=== PATIENT | male | born 1955 | race Caucasian/White ===

== ENCOUNTER 2017-03-16 09:22 | Emergency (ER) | payer OTHER ==
[2017-03-16 09:30] VITALS: BP 147/90
--- NOTE | 2017-03-16 09:48 | EDM.PDOC ---
ED HPI GENERAL MEDICAL PROBLEM - General Chief Complaint: Flank Pain Stated Complaint: BACK AND SIDE PAINS, [id number] Time Seen by Provider: 03/16/17 09:48 Source of Information: Reports: Patient History Limitations: Reports: No Limitations - History of Present Illness INITIAL COMMENTS - FREE TEXT/NARRATIVE: Patient comes in with complaint of pain in left side. He was brushing teeth, began to cough and felt pull in this area. States he has prob with chronic back pain and sees chiropracter. Has not had definitive eval of back by provider. He has been having left flank pain off and on for sometime. He had a ct abd/pelvis 03/06/17 which was unremarkable. He had EGD back in 2014 which was unremarkable. He is scheduled for colonoscopy on March 18 for pain. He reports he has had blood in his stool also (which his provider is aware of). He states he has been very depressed because he thinks for sure he must have colon cancer. He states he cannot eat, cannot sleep. He has thought about possible ways to kill himself if he is diagnosed with colon cancer and wants to know if mental health can come see him in ER. He states he has lost about 4 pounds in the last week because he cannot eat. Left Flank Pain Score (Numeric/FACES): 9 - Related Data Allergies Allergy/AdvReac Type Severity Reaction Status Date / Time No Known Allergies Allergy Verified 03/16/17 09:26 Home Meds: Home Meds Fosinopril/Hydrochlorothiazide [Monopril HCTZ 20-12.5 MG] 1 tab PO DAILY [History] Aspirin [Halfprin] 81 mg PO DAILY 05/15/15 [History] Pantoprazole [ProTONIX] 40 mg PO DAILY 05/15/15 [History] atorvaSTATin [Lipitor] 20 mg PO DAILY 05/15/15 [History] Past Medical History HEENT History: Reports: Other (See Below) Other HEENT History: CONJUNCTIVITIS, ringing in L) ear occasionally Cardiovascular History: Reports: High Cholesterol, Hypertension Other Cardiovascular History: TREADMILL STRESS TEST 2011 Gastrointestinal History: Reports: GERD, Other (See Below) Other Gastrointestinal History: colonoscopy scheduled for friday Musculoskeletal History: Reports: Back Pain, Chronic, Fracture Other Musculoskeletal History: FINGER FRACTURE(CRUSH) Neurological History: Reports: Vertigo - Past Surgical History HEENT Surgical History: Reports: Adenoidectomy Social & Family History - Family History Family Medical History: Noncontributory - Tobacco Use Smoking Status *Q: Never Smoker - Caffeine Use Caffeine Use: Reports: Coffee - Recreational Drug Use Recreational Drug Use: No ED ROS GENERAL - Review of Systems Review Of Systems: See Below Constitutional: Reports: No Symptoms HEENT: Reports: No Symptoms Respiratory: Reports: No Symptoms Cardiovascular: Reports: No Symptoms Endocrine: Reports: No Symptoms GI/Abdominal: Reports: Other (chronic left flank pain for several years. blood in stool for "awhile") : Reports: No Symptoms Musculoskeletal: Reports: Other (pt notes h/o of chronic low back pain and when has flare sees chiropractor. he was brushing his teeth today and accidently gagged causing him to cough and gag. he felt like he had a pull in his left side and low back pain. no pain down buttock or thigh, no bowel or bladder compromise) Skin: Reports: No Symptoms Neurological: Reports: No Symptoms Psychiatric: Reports: Other (pt states he has been very depressed. cannot eat or sleep. lost 4 pounds in last week. convinced he has colon cancer and states he has had suicidal thoughts about killing himself if diagnosed with colon cancer.) ED EXAM, DIZZINESS - Physical Exam Exam: See Below Exam Limited By: No Limitations General Appearance: Anxious Ears: Normal External Exam, Normal Canal, Normal TMs Nose: Normal Inspection, Normal Mucosa Throat/Mouth: Normal Inspection, Normal Lips, Normal Teeth, Normal Gums, Normal Oropharynx, Normal Voice, No Airway Compromise Head Exam: Atraumatic, Normocephalic Neck: Normal Inspection, Supple, Non-Tender Respiratory/Chest: No Respiratory Distress, Lungs Clear, Normal Breath Sounds Cardiovascular: Normal Peripheral Pulses, Regular Rate, Rhythm GI/Abdominal: Normal Bowel Sounds, Soft, Non-Tender Neurological: Alert, Normal Dorsiflexion, CN II-XII Intact, Normal Plantar Flexion, Normal Gait, Normal Reflexes, No Motor/Sensory Deficits Back Exam: Other (subjective tender lower left back approx L3-L5. straight leg raising positive at approx 45 degrees) Psychiatric: Anxious Skin Exam: Warm, Dry, Intact, Normal Color, No Rash Course - Vital Signs Text/Narrative:: left flank pain for several years. u/s and egd [address] abd/pelvis 2 weeks ago unremarkable. sched for colonoscopy March 18. Pt asks to talk to mental health with depression and thoughts self harm if has colon cancer. Mental health Sandra has seen and eval patient. She will connect with him FridayMarch 18 after his colonoscopy. Pt has appt Friday with mental health. Sandra also recommended he see pcp shar to discuss depression and get on daily med. He reports to Sandra he feels his pain in side is much improved and resolved now. Given xanax 0.5 mg po x 1 in er. Script for xanax 0.5mg po every 6 hours prn, #8 , no refill. [place] 5/325 one pill every 8 hours as needed, #8, no refill. Last Recorded V/S: Last Vital Signs Temp 36.5 C 03/16/17 09:28 Pulse 84 03/16/17 09:28 Resp 16 03/16/17 09:28 BP 147/90 H 03/16/17 09:28 Pulse Ox 96 03/16/17 09:28 - Orders/Labs/Meds Orders: Active Orders 24 hr Category Date Time Status ALPRAZolam [Xanax] Med 03/16/17 10:55 Once 0.5 mg PO NOW ONE Labs: Laboratory Tests 03/16/17 Range/Units 09:36 Urine Color Yellow (YELLOW) Urine Appearance Clear (CLEAR) Urine pH 5.5 (5.0-9.0) Ur Specific [place] 1.025 (1.005-1.030) Urine Protein 30 H (NEGATIVE) Urine Glucose (UA) Negative (NEGATIVE) Urine Ketones Negative (NEGATIVE) Urine Occult Blood Negative (NEGATIVE) Urine Nitrite Negative (NEGATIVE) Urine Bilirubin Negative (NEGATIVE) Urine Urobilinogen 0.2 (0.2-1.0) mg/dL Ur Leukocyte Esterase Negative (NEGATIVE) Urine RBC 0-5 /HPF Urine WBC 0-5 (0-5/HPF) /HPF Ur Epithelial Cells Rare /HPF Urine Bacteria Few (0-FEW/HPF) /HPF Urine Mucus Many H /LPF Departure - Departure Time of Disposition: 10:57 Disposition: Home, Self-Care 01 Condition: good Clinical Impression: Flank pain, Back pain, Depression - Discharge Information Forms: ED Department Discharge Additional Instructions: For back discomfort you may use pain medicine as needed. Try heating pad, warm soak in tub. See your doctor if persists. For your flank pain, keep appointment FridayMarch 18 for colonoscopy.. For depression, keep appointment Friday with Mental Health. Sandra will be keeping in touch with you this week. You may use Xanax one pill every 6 hours as needed. Make appointment with your primary provider as soon as possible to discuss depression so they may evaluate you and determine if you would benefit from any other medication. If you have thoughts about self harm or harm to others or concerns, return to the Emergency Department or call the Crisis Line. - My Orders Last 24 Hours: My Active Orders 03/16/17 10:55 ALPRAZolam [Xanax] 0.5 mg PO NOW ONE - Assessment/Plan Last 24 Hours: My Active Orders 03/16/17 10:55 ALPRAZolam [Xanax] 0.5 mg PO NOW ONE
[2017-03-16] MEDS ORDERED: ALPRAZolam 0.5 MG Tab PO ONE (10:55)
== END 2017-03-16 11:10 | disposition home or self-care (01) ==
LOC: DL.ED 09:22
DX: M54.5 Low back pain (principal); F32.9 Major depressive disorder, single episode, unspecified; E78.00 Pure hypercholesterolemia, unspecified; I10 Essential (primary) hypertension; K21.9 Gastro-esophageal reflux disease without esophagitis; R10.9 Unspecified abdominal pain; Z79.899 Other long term (current) drug therapy; Z79.82 Long term (current) use of aspirin
CPT/HCPCS: 81001; 99284; A9270

== ENCOUNTER 2017-03-18 05:23 | Day surgery (SDC) | payer OTHER ==
[2017-03-18] MEDS ORDERED: fentaNYL 100 MCG/2 ML SDV ONE (05:41)
[2017-03-18] MEDS ORDERED: Midazolam 1 MG/ML 2 ML SDV ONE (05:41)
[2017-03-18] MEDS ORDERED: fentaNYL 100 MCG/2 ML SDV IV ONE ×3 (06:28→17:13)
[2017-03-18] MEDS ORDERED: Midazolam 1 MG/ML 2 ML SDV IV ONE ×5 (06:29→17:13)
[2017-03-18] MEDS ORDERED: Sodium Chloride 0.9% 10 ML Syringe FLUSH PRN (07:00)
[2017-03-18] MEDS ORDERED: Dextrose 5%-0.45% NaCl 1,000 ML IV SCH (07:00)
[2017-03-18 09:34] VITALS: BP 160/88
--- NOTE | 2017-03-18 09:48 | OR ---
DATE: 03/18/2017 PROCEDURE: Total colonoscopy. INSTRUMENT USED: CF-H180AL Olympus video colonoscope. Olympus distal disposable detachment. PREMEDICATIONS: Fentanyl 100 mcg intravenous, Versed 3.5 mg intravenous. Nasal O2 cannula. The procedure was done under pulse oximetry, BP recording, and order fulfillment specialist. INDICATION: The patient with persistent left lower abdominal pain, unexplained, and not responsive to medical measures. Colonoscopic examination is done for detection of any polypoid lesions and removal, endoscopic hemostasis therapy if needed. DESCRIPTION OF PROCEDURE: Initial rectal exam showed BPH. Rigid anoscopy was normal. The colonoscope was passed with ease. Few diverticula were noted in the distal left colon. There was large amount of fecal material, some solid material that had to be aspirated. The scope was passed with ease up to the ileocecal area, photographs were taken of the normal-appearing cecum, identified by landmarks of appendiceal orifice and double-bulged ileocecal folds. No bleeding was noted from any of the visualized areas at the commencement of the examination. No stricture. No vascular ectasia. No large isolated ulcerations seen. No evidence of diffuse inflammatory bowel disease in the form of friability, contact bleeding, or ulcerations. No polyp or tumor mass identified. Probing the proximal sides of folds and flexures, using adequate distention and clearing of the stool material, withdrawal of the scope was made, cecum to rectum time over 6 minutes. No bleeding was noted from any of the visualized areas at the completion of examination. IMPRESSION: Diverticulosis. The patient tolerated the procedure well. [facility] /[id number]
== END 2017-03-18 09:33 | disposition home or self-care (01) ==
LOC: DL.ENDO 05:23
PROVIDERS: ATTEND Internal Medicine Gastroenterology
DX: K57.30 Diverticulosis of large intestine without perforation or abscess without bleeding (principal); I10 Essential (primary) hypertension; E78.00 Pure hypercholesterolemia, unspecified
CPT/HCPCS: 45378; J2250; J3010; J7042

== ENCOUNTER 2017-03-24 18:40 | Emergency (ER) | payer OTHER ==
[2017-03-24] MEDS ORDERED: Acetaminophen/HYDROcodone 325-10 MG Tab PO ONE (19:10)
--- NOTE | 2017-03-24 19:15 | EDM.PDOC ---
ED HPI GENERAL MEDICAL PROBLEM - General Chief Complaint: Lower Extremity Injury/Pain Stated Complaint: HIP PAIN, [id number] Time Seen by Provider: 03/24/17 19:12 Source of Information: Reports: Patient History Limitations: Reports: No Limitations - History of Present Illness INITIAL COMMENTS - FREE TEXT/NARRATIVE: intermittent hip pain, today after waking from nap and lying on left side, sever hip pain and hurts to bear weight, feels like it is popping. Denies injury or activity change. Currently being treated for diverticulitis with levaquin. Onset: Today Location: Reports: Other (left hip) Quality: Reports: Sharp, Throbbing Severity: Moderate Improves with: Reports: Immobilization Worsens with: Reports: Movement Left Hip Pain Score (Numeric/FACES): 10 - Related Data Allergies Allergy/AdvReac Type Severity Reaction Status Date / Time No Known Allergies Allergy Verified 03/16/17 09:26 Home Meds: Home Meds Fosinopril/Hydrochlorothiazide [Monopril HCTZ 20-12.5 MG] 1 tab PO DAILY [History] Aspirin [Halfprin] 81 mg PO DAILY 05/15/15 [History] Pantoprazole [ProTONIX] 40 mg PO DAILY 05/15/15 [History] atorvaSTATin [Lipitor] 20 mg PO DAILY 05/15/15 [History] ALPRAZolam [Alprazolam] 1 tab PO Q6H 03/18/17 [History] Hydrocodone/Acetaminophen [Hydrocodon-Acetaminophen 5-325] 1 tab PO Q8H [History] Past Medical History HEENT History: Reports: Other (See Below) Other HEENT History: CONJUNCTIVITIS, ringing in L) ear occasionally Cardiovascular History: Reports: High Cholesterol, Hypertension Other Cardiovascular History: TREADMILL STRESS TEST 2011 Respiratory History: Reports: None Gastrointestinal History: Reports: GERD, Other (See Below) Other Gastrointestinal History: colonoscopy 03/18/17 Genitourinary History: Reports: Renal Calculus Musculoskeletal History: Reports: Back Pain, Chronic, Fracture Other Musculoskeletal History: FINGER FRACTURE(CRUSH) Neurological History: Reports: Vertigo Psychiatric History: Reports: Anxiety Endocrine/Metabolic History: Reports: None Hematologic History: Reports: None Immunologic History: Reports: None Oncologic (Cancer) History: Reports: None Dermatologic History: Reports: Eczema - Infectious Disease History Infectious Disease History: Reports: None - Past Surgical History Head Surgeries/Procedures: Reports: None HEENT Surgical History: Reports: Adenoidectomy Cardiovascular Surgical History: Reports: None GI Surgical History: Reports: None Musculoskeletal Surgical History: Reports: None Social & Family History - Family History Family Medical History: Noncontributory - Tobacco Use Smoking Status *Q: Never Smoker - Caffeine Use Caffeine Use: Reports: Coffee - Recreational Drug Use Recreational Drug Use: No Review of Systems - Review of Systems Review Of Systems: ROS reveals no pertinent complaints other than HPI. ED EXAM, GENERAL - Physical Exam Exam: See Below Exam Limited By: No Limitations General Appearance: Alert, Mild Distress (at rest), Moderate Distress (with movement) Eye Exam: Bilateral Eye: EOMI Ears: Normal External Exam Nose: Normal Inspection Neck: Normal Inspection Respiratory/Chest: No Respiratory Distress, Lungs Clear, Normal Breath Sounds Cardiovascular: Normal Peripheral Pulses, Regular Rate, Rhythm GI/Abdominal: Normal Bowel Sounds, Soft. No: Distended, Guarding Back Exam: Normal Inspection Extremities: Other (left hip pain with palpation worse with movment extension and external rotation) Neurological: Alert, Oriented, Normal Cognition Psychiatric: Anxious Skin Exam: Warm, Dry, Intact, Normal Color Course - Vital Signs Last Recorded V/S: Last Vital Signs Temp 98.2 F 03/24/17 18:54 Pulse 81 03/24/17 20:37 Resp 18 03/24/17 20:37 BP 132/92 H 03/24/17 20:37 Pulse Ox 100 03/24/17 20:37 - Orders/Labs/Meds Meds: Medications Discontinued Medications Generic Name Dose Route Start Last Admin Trade Name Bibiana PRN Reason Stop Dose Admin Hydrocodone Bitart/Acetaminophen 1 tab 03/24/17 19:10 03/24/17 19:19 [place] 325-10 Mg PO 03/24/17 19:11 1 tab ONETIME ONE Administration - Radiology Interpretation Free Text/Narrative:: xray left hip negative Departure - Departure Time of Disposition: 20:40 Disposition: Home, Self-Care 01 Condition: good Clinical Impression: Hip strain Qualifiers: Encounter type: initial encounter Laterality: left Qualified Code(s): S76.012A - Strain of muscle, fascia and tendon of left hip, initial encounter - Discharge Information Instructions: Hip Pain Referrals: Christiano Downey NP [Primary Care Provider] - Forms: ED Department Discharge Additional Instructions: tylenol 650mg every 4-6 hours as needed for discomfort rest ice or heat to area for comfort follow up in clinic if not improving in 2 days
[2017-03-24 20:40] VITALS: BP 132/92
== END 2017-03-24 20:45 | disposition home or self-care (01) ==
LOC: DL.ED 18:40
DX: S76.012A Strain of muscle, fascia and tendon of left hip, initial encounter (principal); E78.00 Pure hypercholesterolemia, unspecified; I10 Essential (primary) hypertension; K21.9 Gastro-esophageal reflux disease without esophagitis; F41.9 Anxiety disorder, unspecified; Z79.899 Other long term (current) drug therapy; X58.XXXA Exposure to other specified factors, initial encounter
CPT/HCPCS: 73502; 99283; A9270

== ENCOUNTER 2017-03-26 05:03 | Emergency (ER) | payer OTHER ==
[2017-03-26 05:13] VITALS: BP 163/109
--- NOTE | 2017-03-26 05:42 | EDM.PDOC ---
ED HPI GENERAL MEDICAL PROBLEM - General Chief Complaint: Lower Extremity Injury/Pain Stated Complaint: LEG PAIN FROM KNEE DOWN Time Seen by Provider: 03/26/17 05:15 Source of Information: Reports: Patient History Limitations: Reports: No Limitations - History of Present Illness INITIAL COMMENTS - FREE TEXT/NARRATIVE: This 61 yo male patient reports to the ED with left leg pain. The patient reports his pain woke him up at about midnight. The patient reports he took his last dose of pain medication. The patient reports his leg felt like it was exploding, but now he describes it as numbness. The patient has been seen for lower back pain (03/06/17) and left hip pain (03/24/17). The patient has been getting some pain medications ([place]) for his pain. The patient reports he thinks his pain has been coming from him taking Levaquin. The patient has not followed up with his primary care provider. Onset: Today, Sudden Onset Date: 03/26/17 Onset Time: 00:00 Duration: Constant Location: Reports: Lower Extremity, Left Quality: Reports: Ache, Dull Severity: Moderate Improves with: Reports: Medication ([place]) Worsens with: Reports: None Left Upper Leg Pain Score (Numeric/FACES): 5 - Related Data Allergies Allergy/AdvReac Type Severity Reaction Status Date / Time No Known Allergies Allergy Verified 03/26/17 05:16 Home Meds: Home Meds Fosinopril/Hydrochlorothiazide [Monopril HCTZ 20-12.5 MG] 1 tab PO DAILY [History] Pantoprazole [ProTONIX] 40 mg PO DAILY 05/15/15 [History] Hydrocodone/Acetaminophen [Hydrocodon-Acetaminophen 5-325] 1 tab PO Q8H [History] Levofloxacin [IJP: Levofloxacin] 500 mg PO DAILY 03/26/17 [History] Past Medical History HEENT History: Reports: Other (See Below) Other HEENT History: CONJUNCTIVITIS, ringing in L) ear occasionally Cardiovascular History: Reports: High Cholesterol, Hypertension Other Cardiovascular History: TREADMILL STRESS TEST 2011 Respiratory History: Reports: None Gastrointestinal History: Reports: GERD, Other (See Below) Other Gastrointestinal History: colonoscopy 03/18/17 Genitourinary History: Reports: Renal Calculus Musculoskeletal History: Reports: Back Pain, Chronic, Fracture Other Musculoskeletal History: FINGER FRACTURE(CRUSH) Neurological History: Reports: Vertigo Psychiatric History: Reports: Anxiety Endocrine/Metabolic History: Reports: None Hematologic History: Reports: None Immunologic History: Reports: None Oncologic (Cancer) History: Reports: None Dermatologic History: Reports: Eczema - Infectious Disease History Infectious Disease History: Reports: None - Past Surgical History Head Surgeries/Procedures: Reports: None HEENT Surgical History: Reports: Adenoidectomy Cardiovascular Surgical History: Reports: None GI Surgical History: Reports: None Musculoskeletal Surgical History: Reports: None Social & Family History - Family History Family Medical History: Noncontributory - Tobacco Use Smoking Status *Q: Never Smoker Second Hand Smoke Exposure: No - Caffeine Use Caffeine Use: Reports: Coffee - Recreational Drug Use Recreational Drug Use: No Review of Systems - Review of Systems Review Of Systems: ROS reveals no pertinent complaints other than HPI. ED EXAM, GENERAL - Physical Exam Exam: See Below Exam Limited By: No Limitations General Appearance: Alert, WD/WN, Mild Distress Eye Exam: Bilateral Eye: EOMI, Normal Inspection, PERRL Ears: Normal External Exam, Normal Canal, Hearing Grossly Normal, Normal TMs Nose: Normal Inspection, Normal Mucosa, No Blood Throat/Mouth: Normal Inspection, Normal Lips, Normal Teeth, Normal Gums, Normal Oropharynx, Normal Voice, No Airway Compromise Head: Atraumatic, Normocephalic Neck: Normal Inspection, Supple, Non-Tender, Full Range of Motion Respiratory/Chest: No Respiratory Distress, Lungs Clear, Normal Breath Sounds, No Accessory Muscle Use, Chest Non-Tender Cardiovascular: Normal Peripheral Pulses, Regular Rate, Rhythm, No Edema, No Gallop, No JVD, No Murmur, No Rub GI/Abdominal: Normal Bowel Sounds, Soft, Non-Tender, No Organomegaly, No Distention, No Abnormal Bruit, No Mass (Male) Exam: Deferred Rectal (Males) Exam: Deferred Back Exam: Normal Inspection, Full Range of Motion, NT Extremities: Leg Pain (left lower extremity) Neurological: Alert, Oriented, CN II-XII Intact, Normal Cognition, Normal Gait, Normal Reflexes, No Motor/Sensory Deficits Psychiatric: Depressed Mood Skin Exam: Warm, Dry, Intact, Normal Color, No Rash Lymphatic: No Adenopathy Course - Vital Signs Last Recorded V/S: Last Vital Signs Temp 36.6 C 03/26/17 05:07 Pulse 85 06/07/17 05:07 Resp 18 03/26/17 05:07 BP 163/109 H 03/26/17 05:07 Pulse Ox 96 03/26/17 05:07 - Orders/Labs/Meds Labs: Laboratory Tests 03/26/17 03/26/17 03/26/17 Range/Units 05:38 05:38 05:38 WBC 7.3 (5.0-10.0) 10^3/uL RBC 5.08 (4.6-6.2) 10^6/uL Hgb 16.1 (14.0-18.0) g/dL Hct 46.3 (40.0-54.0) % MCV 91.1 (80-100) fL MCH 31.7 (27.0-34.0) pg MCHC 34.8 (33.0-35.0) g/dL Plt Count 174 (150-450) 10^3/uL Neut % (Auto) 59.5 (42.2-75.2) % Lymph % (Auto) 29.9 (20.5-50.1) % [place] % (Auto) 8.4 H (2-8) % Eos % (Auto) 1.8 (1.0-3.0) % Baso % (Auto) 0.4 (0.0-1.0) % Sodium 139 (135-145) mmol/L Potassium 3.4 L (3.6-5.0) mmol/L Chloride 104 (101-111) mmol/L Carbon Dioxide 27.0 (21.0-31.0) mmol/L Anion Gap 11.4 BUN 17 (7-18) mg/dL Creatinine 1.1 (0.6-1.3) mg/dL Est Cr Clr Drug Dosing TNP Estimated GFR (MDRD) > 60 BUN/Creatinine Ratio 15.45 Glucose 111 H (74-105) mg/dL Calcium 9.4 (8.4-10.2) mg/dl Magnesium 2.1 (1.8-2.5) mg/dL Total Bilirubin 0.8 (0.2-1.0) mg/dL AST 20 (10-42) IU/L ALT 23 (10-60) IU/L Alkaline Phosphatase 59 (42-121) IU/L Total Protein 7.4 (6.7-8.2) g/dl Albumin 4.4 (3.2-5.5) g/dl Globulin 3.0 Albumin/Globulin Ratio 1.47 Departure - Departure Time of Disposition: 06:11 Disposition: Home, Self-Care 01 Condition: fair Clinical Impression: Muscle strain of left lower leg Qualifiers: Encounter type: subsequent encounter Qualified Code(s): S86.912D - Strain of unspecified muscle(s) and tendon(s) at lower leg level, left leg, subsequent encounter - Discharge Information Instructions: Muscle Strain, [id number] Forms: ED Department Discharge Care Plan Goals: The patient was advised of the examination and lab results during the visit. The patient was encouraged to follow-up with his primary care facility for further evaluation of the continued use of Levaquin. If the patient has any additional symptoms or concerns, the patient should visit his primary care facility or return to the emergency department.
[2017-03-26 06:05] LABS: CHLORIDE,CL 104 mmol/L (101-111); SODIUM,NA 139 mmol/L (135-145)
== END 2017-03-26 06:17 | disposition home or self-care (01) ==
LOC: DL.ED 05:03
DX: S86.912D Strain of unspecified muscle(s) and tendon(s) at lower leg level, left leg, subsequent encounter (principal); E78.00 Pure hypercholesterolemia, unspecified; I10 Essential (primary) hypertension; K21.9 Gastro-esophageal reflux disease without esophagitis; F41.9 Anxiety disorder, unspecified; Z98.890 Other specified postprocedural states; Z79.899 Other long term (current) drug therapy; X58.XXXD Exposure to other specified factors, subsequent encounter
CPT/HCPCS: 36415; 80053; 83735; 85025; 99283

== ENCOUNTER 2018-12-21 08:32 | Emergency (ER) | payer OTHER ==
[2018-12-21] MEDS ORDERED: Sodium Chloride 0.9% 10 ML Syringe FLUSH PRN (08:46)
[2018-12-21] MEDS ORDERED: Aspirin 81 MG Tab.Chew PO ONE (08:48)
[2018-12-21 08:55] VITALS: BP 165/119
[2018-12-21 10:20] LABS: ANION GAP 12.8; SODIUM,NA 139 mmol/L (135-145)
[2018-12-21] MEDS ORDERED: GI Cocktail Oral Solution 30 ML PO ONE (10:41)
--- NOTE | 2018-12-21 10:47 | EDM.PDOC ---
ED HPI GENERAL MEDICAL PROBLEM - General Chief Complaint: Chest Pain Stated Complaint: CHEST PAIN Time Seen by Provider: 12/21/18 08:51 Source of Information: Reports: Patient History Limitations: Reports: No Limitations - History of Present Illness INITIAL COMMENTS - FREE TEXT/NARRATIVE: Patient comes emergency Department today with complaints of chest pain. He has been struggling with pleurisy over the past couple of months since about August. He is recently had a cardiac stent couple months ago. Over the past day or so he has had different type of pain that he's had in the past. This is more of a burning type intermittent discomfort in the epigastric lower sternal region. He also has a sour taste in his mouth. This been going on for the past couple of days. He has not tried anything to make the pain better. His pain does not get worse with deep cough breath or movement. He doesn't have any shortness of breath. No fever no chills. No cough or congestion. No abdominal pain. No nausea no vomiting. No diaphoresis. No weakness dizziness lightheadedness. No palpitations. No black or tarry stools. He has no pain on arrival to the emergency department and he has no discomfort on arrival to the emergency department. 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 Chest Pain Score (Numeric/FACES): 3 - Related Data Allergies Allergy/AdvReac Type Severity Reaction Status Date / Time No Known Allergies Allergy Verified 12/21/18 08:55 Home Meds: Home Meds atorvaSTATin [Lipitor] 20 mg PO DAILY 09/10/18 [History] Metoprolol Succinate [Toprol XL 50mg] 50 mg PO DAILY 10/26/18 [History] Pantoprazole [ProTONIX] 40 mg PO DAILY 10/26/18 [History] Methylcellulose (with Sugar) [Citrucel] 1 tbsp PO DAILY 10/27/18 [History] Vit A/Vit C/Vit E/Zinc/Copper [Icaps Areds Formula] 2 cap PO BID 10/27/18 [ History] Aspirin [Lo-Dose Aspirin EC] 81 mg PO 12/21/18 [History] Clopidogrel Bisulfate [Clopidogrel] 75 mg PO 12/21/18 [History] Past Medical History HEENT History: Reports: Impaired Vision, Other (See Below) Other HEENT History: CONJUNCTIVITIS, ringing in L) ear occasionally. Wears glasses Cardiovascular History: Reports: High Cholesterol, Hypertension, PTCA, Stents Other Cardiovascular History: TREADMILL STRESS TEST 2011. Ptca with stents Respiratory History: Reports: None Other Respiratory History: States has pluerisy Gastrointestinal History: Reports: Diverticulosis, GERD, Other (See Below) Other Gastrointestinal History: colonoscopy 03/18/17 Genitourinary History: Reports: Renal Calculus Musculoskeletal History: Reports: Back Pain, Chronic, Fracture Other Musculoskeletal History: FINGER FRACTURE(CRUSH) Neurological History: Reports: Vertigo Psychiatric History: Reports: Anxiety Endocrine/Metabolic History: Reports: None Hematologic History: Reports: None Immunologic History: Reports: None Oncologic (Cancer) History: Reports: None Dermatologic History: Reports: Eczema - Infectious Disease History Infectious Disease History: Reports: None - Past Surgical History Head Surgeries/Procedures: Reports: None HEENT Surgical History: Reports: Adenoidectomy Cardiovascular Surgical History: Reports: None GI Surgical History: Reports: None Musculoskeletal Surgical History: Reports: None Social & Family History - Family History Family Medical History: Noncontributory - Tobacco Use Smoking Status *Q: Never Smoker Second Hand Smoke Exposure: Yes - Caffeine Use Caffeine Use: Reports: Soda, Other Other Caffeine Use: switched to decaf coffee - Recreational Drug Use Recreational Drug Use: No - Living Situation & Occupation Living situation: Reports: with Family ED ROS GENERAL - Review of Systems Review Of Systems: ROS reveals no pertinent complaints other than HPI. ED EXAM, GENERAL - Physical Exam Exam: See Below Exam Limited By: No Limitations General Appearance: Alert, WD/WN, No Apparent Distress Eye Exam: Bilateral Eye: Normal Inspection Ears: Normal External Exam Head: Atraumatic, Normocephalic Neck: Normal Inspection, Supple, Non-Tender Respiratory/Chest: No Respiratory Distress, Lungs Clear, Normal Breath Sounds, No Accessory Muscle Use, Chest Non-Tender (NO bruising swelling ecchymois bony deformity step-offs or any other signs of trauma to anterior posterior thorax.) Cardiovascular: Normal Peripheral Pulses, Regular Rate, Rhythm, No Murmur Peripheral Pulses: 2+: Radial (L), Radial (R), Posterior Tibial (L), Posterior Tibial (R), Dorsalis Pedis (L), Dorsalis Pedis (R) GI/Abdominal: Normal Bowel Sounds, Soft, Non-Tender, No Abnormal Bruit Back Exam: Normal Inspection, Full Range of Motion Extremities: Normal Inspection, Non-Tender, No Pedal Edema, Normal Capillary Refill Neurological: Alert, Oriented, CN II-XII Intact, Normal Cognition, No Motor/ Sensory Deficits Psychiatric: Normal Affect, Normal Mood Skin Exam: Warm, Dry, Intact, Normal Color, No Rash EKG INTERPRETATION EKG Date: 12/21/18 Time: 08:33 Rate (Beats/Min): 62 [place]: Normal P-Wave: Present QRS: Normal ST-T: Normal QT: Normal Comparison: No Change Course - Vital Signs Last Recorded V/S: Last Vital Signs Temp 37.4 C 12/21/18 08:51 Pulse 68 12/21/18 08:51 Resp 14 12/21/18 08:51 BP 165/119 H 12/21/18 08:51 Pulse Ox 98 12/21/18 08:51 - Orders/Labs/Meds Orders: Active Orders 24 hr Category Date Time Status EKG 12 Lead [EKG Documentation Completion] [RC] URGENT Care 12/21/18 08:46 Active Peripheral IV Care [RC] . DIRECTED Care 12/21/18 08:47 Active Peripheral IV Insertion Adult [OM.PC] Stat Oth 12/21/18 08:46 Ordered Labs: Laboratory Tests 12/21/18 12/21/18 Range/Units 08:44 09:06 WBC 7.9 (5.0-10.0) 10^3/uL RBC 5.51 (4.6-6.2) 10^6/uL Hgb 17.2 (14.0-18.0) g/dL Hct 50.4 (40.0-54.0) % MCV 91.5 (80-100) fL MCH 31.2 (27.0-34.0) pg MCHC 34.1 (33.0-35.0) g/dL Plt Count 181 (150-450) 10^3/uL Neut % (Auto) 56.5 (42.2-75.2) % Lymph % (Auto) 28.4 (20.5-50.1) % [place] % (Auto) 11.3 H (2-8) % Eos % (Auto) 3.3 H (1.0-3.0) % Baso % (Auto) 0.5 (0.0-1.0) % Add Manual Diff Yes Neutrophils % (Manual) 56 (42-75) % Lymphocytes % (Manual) 31 (20-50) % Monocytes % (Manual) 7 (2-8) % Eosinophils % (Manual) 3 (1-3) % Basophils % (Manual) 1 Metamyelocytes % 1 Myelocytes % 1 Platelet Estimate Adequate Giant Platelets Few Sodium 139 (135-145) mmol/L Potassium 3.8 (3.6-5.0) mmol/L Chloride 106 (101-111) mmol/L Carbon Dioxide 24.0 (21.0-31.0) mmol/L Anion Gap 12.8 BUN 17 (7-18) mg/dL Creatinine 1.1 (0.6-1.3) mg/dL Est Cr Clr Drug Dosing 74.16 mL/min Estimated GFR (MDRD) > 60 BUN/Creatinine Ratio 15.45 Glucose 94 (74-105) mg/dL Calcium 9.2 (8.4-10.2) mg/dl Total Bilirubin 1.1 H (0.2-1.0) mg/dL AST 28 (10-42) IU/L ALT 27 (10-60) IU/L Alkaline Phosphatase 62 (42-121) IU/L Troponin I < 0.02 (0.00-0.02) ng/ml Total Protein 7.1 (6.7-8.2) g/dl Albumin 4.1 (3.2-5.5) g/dl Globulin 3.0 Albumin/Globulin Ratio 1.37 Meds: Medications Discontinued Medications Generic Name Dose Route Start Last Admin Trade Name Freq PRN Reason Stop Dose Admin Al Hydroxide/Mg Hydroxide 30 ml 12/21/18 10:41 Gi Cocktail PO 12/21/18 10:42 ONETIME ONE Aspirin 324 mg 12/21/18 08:48 12/21/18 09:10 Aspirin PO 12/21/18 08:49 324 mg ONETIME ONE Administration Sodium Chloride 10 ml 12/21/18 08:46 12/21/18 10:16 Saline Flush FLUSH 10 ml ASDIRECTED PRN Administration Keep Vein Open - Radiology Interpretation Free Text/Narrative:: Chest x-ray per radiology acute findings. - Re-Assessments/Exams Free Text/Narrative Re-Assessment/Exam: 12/21/18 The patient did not have any reoccurrence of the epigastric low sternal chest discomfort while he was in the emergency department. His EKG is unremarkable as well as his laboratory evaluation. He does have a history of GERD and I wonder if this is not an aspect of his symptomology. At this time does not appear to be cardiac in nature. We will discharge him home at this time and try some oral antacids if the pain returns. He is comfortable with this plan and his questions are answered. Departure - Departure Time of Disposition: 10:44 Disposition: Home, Self-Care 01 Clinical Impression: Atypical chest pain Instructions: Nonspecific Chest Pain, [id number] Referrals: Christiano Downey NP [Primary Care Provider] - Forms: ED Department Discharge Additional Instructions: Maalox of Mylanta for acute symptoms of the epigastric lower chest pain burning. Continue your previous therapies. Follow up with cardiology as planned in the next week Return to the ED if new or worsening symptoms. - My Orders Last 24 Hours: My Active Orders 12/21/18 08:46 EKG 12 Lead [EKG Documentation Completion] [RC] URGENT Peripheral IV Insertion Adult [OM.PC] Stat 12/21/18 08:47 Peripheral IV Care [RC] . DIRECTED - Assessment/Plan Last 24 Hours: My Active Orders 12/21/18 08:46 EKG 12 Lead [EKG Documentation Completion] [RC] URGENT Peripheral IV Insertion Adult [OM.PC] Stat 12/21/18 08:47 Peripheral IV Care [RC] . DIRECTED Assessment:: Atypical chest pain, ? GERD Plan: Maalox of Mylanta for acute symptoms of the epigastric lower chest pain burning. Continue your previous therapies. Follow up with cardiology as planned in the next week Return to the ED if new or worsening symptoms.
[2018-12-21 10:59] LABS: CHLORIDE,CL 106 mmol/L (101-111)
== END 2018-12-21 10:54 | disposition home or self-care (01) ==
LOC: DL.ED 08:32
DX: R07.89 Other chest pain (principal); I10 Essential (primary) hypertension; Z95.5 Presence of coronary angioplasty implant and graft; Z79.82 Long term (current) use of aspirin; Z79.899 Other long term (current) drug therapy
CPT/HCPCS: 36415; 71046; 80053; 84484; 85025; 93005; 99285; A9270

== ENCOUNTER 2019-07-01 19:56 | Observation (INO) | payer OTHER ==
--- NOTE | 2019-07-01 20:12 | EDM.PDOC ---
ED HPI GENERAL MEDICAL PROBLEM - General Stated Complaint: HIGH PULSE RATE Time Seen by Provider: 07/01/19 20:05 Source of Information: Reports: Patient History Limitations: Reports: No Limitations - History of Present Illness INITIAL COMMENTS - FREE TEXT/NARRATIVE: This 64 yo male patient reports to the ED with a fast heart rate. The patient reports his symptoms started about 15 minutes prior to coming to the ED. The patient reports his dogs were giving him problems, he jumped out of the vehicle to separate the dogs and noticed his fast heart rate. The patient reports he had a pacemaker placed in November ([employer] in [place]), but has not had any issues since that time. The patient has been taking all medications as prescribed. Onset: Today Onset Date: 07/01/19 Onset Time: 19:55 Duration: Constant Location: Reports: Chest Quality: Reports: Other Severity: Moderate Improves with: Reports: None Worsens with: Reports: None Context: Reports: Other Associated Symptoms: Reports: No Other Symptoms - Related Data Allergies Allergy/AdvReac Type Severity Reaction Status Date / Time No Known Allergies Allergy Verified 07/01/19 20:13 Home Meds: Home Meds atorvaSTATin [Lipitor] 20 mg PO DAILY 09/10/18 [History] Metoprolol Succinate [Toprol XL 50mg] 50 mg PO DAILY 10/26/18 [History] Pantoprazole [ProTONIX] 40 mg PO DAILY 10/26/18 [History] Methylcellulose (with Sugar) [Citrucel] 1 tbsp PO DAILY 10/27/18 [History] Vit A/Vit C/Vit E/Zinc/Copper [Icaps Areds Formula] 2 cap PO BID 10/27/18 [ History] Aspirin [Lo-Dose Aspirin EC] 81 mg PO DAILY 12/21/18 [History] Clopidogrel Bisulfate [Clopidogrel] 75 mg PO DAILY 12/21/18 [History] Past Medical History HEENT History: Reports: Impaired Vision, Other (See Below) Other HEENT History: CONJUNCTIVITIS, ringing in L) ear occasionally. Wears glasses Cardiovascular History: Reports: High Cholesterol, Hypertension, PTCA, Stents Other Cardiovascular History: TREADMILL STRESS TEST 2011. Ptca with stents Respiratory History: Reports: None Other Respiratory History: States has pluerisy Gastrointestinal History: Reports: Diverticulosis, GERD, Other (See Below) Other Gastrointestinal History: colonoscopy 03/18/17 Genitourinary History: Reports: Renal Calculus Musculoskeletal History: Reports: Back Pain, Chronic, Fracture Other Musculoskeletal History: FINGER FRACTURE(CRUSH) Neurological History: Reports: Vertigo Psychiatric History: Reports: Anxiety Endocrine/Metabolic History: Reports: None Hematologic History: Reports: None Immunologic History: Reports: None Oncologic (Cancer) History: Reports: None Dermatologic History: Reports: Eczema - Infectious Disease History Infectious Disease History: Reports: None - Past Surgical History Head Surgeries/Procedures: Reports: None HEENT Surgical History: Reports: Adenoidectomy Cardiovascular Surgical History: Reports: None GI Surgical History: Reports: None Musculoskeletal Surgical History: Reports: None Social & Family History - Family History Family Medical History: Noncontributory - Caffeine Use Caffeine Use: Reports: Soda, Other Other Caffeine Use: switched to decaf coffee - Living Situation & Occupation Living situation: Reports: with Family ED ROS GENERAL - Review of Systems Review Of Systems: ROS reveals no pertinent complaints other than HPI. ED EXAM, GENERAL - Physical Exam Exam: See Below Exam Limited By: No Limitations General Appearance: Alert, WD/WN, Mild Distress, Thin Eye Exam: Bilateral Eye: EOMI, Normal Inspection, PERRL Ears: Normal External Exam, Normal Canal, Hearing Grossly Normal, Normal TMs Nose: Normal Inspection, Normal Mucosa, No Blood Throat/Mouth: Normal Inspection, Normal Lips, Normal Teeth, Normal Gums, Normal Oropharynx, Normal Voice, No Airway Compromise Head: Atraumatic, Normocephalic Neck: Normal Inspection, Supple, Non-Tender, Full Range of Motion Respiratory/Chest: No Respiratory Distress, Lungs Clear, Normal Breath Sounds, No Accessory Muscle Use, Chest Non-Tender Cardiovascular: No Edema, No Gallop, No JVD, No Murmur, No Rub, Tachycardia, Irregularly Irregular GI/Abdominal: Normal Bowel Sounds, Soft, Non-Tender, No Organomegaly, No Distention, No Abnormal Bruit, No Mass (Male) Exam: Deferred Rectal (Males) Exam: Deferred Back Exam: Normal Inspection, Full Range of Motion, NT Extremities: Normal Inspection, Normal Range of Motion, Non-Tender, Normal Capillary Refill, No Pedal Edema Neurological: Alert, Oriented, CN II-XII Intact, Normal Cognition, Normal Gait, Normal Reflexes, No Motor/Sensory Deficits Psychiatric: Normal Affect, Normal Mood Skin Exam: Warm, Dry, Intact, Normal Color, No Rash Lymphatic: No Adenopathy Course - Vital Signs Last Recorded V/S: Last Vital Signs Temp Pulse 149 H 07/01/19 20:06 Resp 18 07/01/19 20:06 BP 164/98 H 07/01/19 20:06 Pulse Ox 97 07/01/19 20:06 - Orders/Labs/Meds Orders: Active Orders 24 hr Category Date Time Status EKG Documentation Completion [RC] URGENT Care 07/01/19 20:07 Ordered Chest 1V Frontal [CR] Urgent Exams 07/01/19 20:07 Ordered Diltiazem 125 MG in NS @ 5 MG/HR(100ml) Med 07/01/19 21:03 Ordered Diltiazem 125 mg Sodium Chloride 0.9% [Normal Saline] 100 ml IV TITRATE Medication Orders Diltiazem HCl 125 mg/ Sodium (Chloride) 125 mls @ 5 mls/hr IV TITRATE CLIFFORD; Protocol Labs: Laboratory Tests 07/01/19 07/01/19 Range/Units 20:15 20:15 WBC 7.4 (5.0-10.0) 10^3/uL RBC 5.39 (4.6-6.2) 10^6/uL Hgb 17.0 (14.0-18.0) g/dL Hct 49.5 (40.0-54.0) % MCV 91.8 (80-100) fL MCH 31.5 (27.0-34.0) pg MCHC 34.3 (33.0-35.0) g/dL Plt Count 180 (150-450) 10^3/uL Neut % (Auto) 43.3 (42.2-75.2) % Lymph % (Auto) 43.3 (20.5-50.1) % [place] % (Auto) 10.0 H (2-8) % Eos % (Auto) 3.0 (1.0-3.0) % Baso % (Auto) 0.4 (0.0-1.0) % Sodium 140 (135-145) mmol/L Potassium 3.4 L (3.6-5.0) mmol/L Chloride 104 (101-111) mmol/L Carbon Dioxide 27.0 (21.0-31.0) mmol/L Anion Gap 12.4 BUN 24 H (7-18) mg/dL Creatinine 1.2 (0.6-1.3) mg/dL Est Cr Clr Drug Dosing 67.11 mL/min Estimated GFR (MDRD) > 60 BUN/Creatinine Ratio 20.00 Glucose 114 H (74-105) mg/dL Calcium 9.4 (8.4-10.2) mg/dl Total Bilirubin 1.0 (0.2-1.0) mg/dL AST 28 (10-42) IU/L ALT 29 (10-60) IU/L Alkaline Phosphatase 62 (42-121) IU/L Troponin I < 0.02 (0.00-0.02) ng/ml Total Protein 7.8 (6.7-8.2) g/dl Albumin 4.6 (3.2-5.5) g/dl Globulin 3.2 Albumin/Globulin Ratio 1.44 Meds: Medications Generic Name Dose Route Start Last Admin Trade Name Freq PRN Reason Stop Dose Admin Diltiazem HCl 125 mg/ Sodium 125 mls @ 5 mls/hr 07/01/19 21:03 Chloride IV TITRATE CLIFFORD Protocol 5 MG/HR Discontinued Medications Generic Name Dose Route Start Last Admin Trade Name Freq PRN Reason Stop Dose Admin Diltiazem HCl 25 mg 07/01/19 20:14 07/01/19 20:22 Diltiazem IVPUSH 07/01/19 20:15 20 mg ONETIME ONE Administration Diltiazem HCl 20 mg 07/01/19 20:41 07/01/19 20:46 Diltiazem IVPUSH 07/01/19 20:42 20 mg ONETIME ONE Administration - Re-Assessments/Exams Free Text/Narrative Re-Assessment/Exam: 07/01/19 21:11 The patient continues to be in A fib after 2 bolus doses of Cardizem. A Cardizem drip was started at 5 mg/hr. Departure - Departure Time of Disposition: 21:11 Disposition: Admitted As Inpatient 67 Condition: Fair Clinical Impression: Atrial fibrillation with RVR Care Plan Goals: Discussed the patient's history, examination, EKG, lab results and treatments with Dr. Alberts. Dr. Alberts accepted the patient for continued evaluation and further treatment as an observation patient at [facility] in [place]. - My Orders Last 24 Hours: My Active Orders 07/01/19 20:07 EKG Documentation Completion [RC] URGENT Chest 1V Frontal [CR] Urgent 07/01/19 21:03 Diltiazem 125 MG in NS @ 5 MG/HR(100ml) Diltiazem 125 mg Sodium Chloride 0.9% [Normal Saline] 100 ml IV TITRATE - Assessment/Plan Last 24 Hours: My Active Orders 07/01/19 20:07 EKG Documentation Completion [RC] URGENT Chest 1V Frontal [CR] Urgent 07/01/19 21:03 Diltiazem 125 MG in NS @ 5 MG/HR(100ml) Diltiazem 125 mg Sodium Chloride 0.9% [Normal Saline] 100 ml IV TITRATE
[2019-07-01] MEDS ORDERED: Diltiazem 25 MG/5 ML SDV IVPUSH ONE ×2 (20:14→20:41)
[2019-07-01 20:45] LABS: ANION GAP 12.4; CHLORIDE,CL 104 mmol/L (101-111); SODIUM,NA 140 mmol/L (135-145)
[2019-07-01] MEDS: Diltiazem 125 MG in Sodium Chloride 0.9% 100 ML IV SCH ×2 (21:19→21:20)
[2019-07-01] MEDS ORDERED: Potassium Chloride 10 MEQ Tab.ER PO ONE (23:20)
--- NOTE | 2019-07-01 23:33 | PCM.HP ---
H&P History of Present Illness - General Date of Service: 07/01/19 Admit Problem/Dx: Admission Diagnosis/Problem Admission Diagnosis/Problem Atrial fibrillation Source of Information: Patient History Limitations: Reports: No Limitations - History of Present Illness Initial Comments - Free Text/Narative: 64 yo M with PMH of HTN, CAD (PCI in Nov 2018), GERD, HLD who p/w palpitations. Sudden onset of palpitations this evening NO chest pain Associated SOB No nausea, no diaphoresis, no leg swelling, no dyspnea In ED, found to be in afib with RVR. Started on cardizem gtt - Related Data Allergies/Adverse Reactions: Allergies Allergy/AdvReac Type Severity Reaction Status Date / Time No Known Allergies Allergy Verified 07/01/19 21:49 Home Medications: Home Meds atorvaSTATin [Lipitor] 20 mg PO DAILY 09/10/18 [History] Metoprolol Succinate [Toprol XL 50mg] 50 mg PO DAILY 10/26/18 [History] Pantoprazole [ProTONIX] 40 mg PO DAILY 10/26/18 [History] Methylcellulose (with Sugar) [Citrucel] 1 tbsp PO DAILY 10/27/18 [History] Vit A/Vit C/Vit E/Zinc/Copper [Icaps Areds Formula] 2 cap PO BID 10/27/18 [ History] Aspirin [Lo-Dose Aspirin EC] 81 mg PO DAILY 12/21/18 [History] Clopidogrel Bisulfate [Clopidogrel] 75 mg PO DAILY 12/21/18 [History] Past Medical History HEENT History: Reports: Impaired Vision, Other (See Below) Other HEENT History: CONJUNCTIVITIS, ringing in L) ear occasionally. Wears glasses Cardiovascular History: Reports: High Cholesterol, Hypertension, PTCA, Stents Other Cardiovascular History: TREADMILL STRESS TEST 2011. Ptca with stents Respiratory History: Reports: None Other Respiratory History: States has pluerisy Gastrointestinal History: Reports: Diverticulosis, GERD, Other (See Below) Other Gastrointestinal History: colonoscopy 03/18/17 Genitourinary History: Reports: Renal Calculus Musculoskeletal History: Reports: Back Pain, Chronic, Fracture Other Musculoskeletal History: FINGER FRACTURE(CRUSH) Neurological History: Reports: Vertigo Psychiatric History: Reports: Anxiety Endocrine/Metabolic History: Reports: None Hematologic History: Reports: None Immunologic History: Reports: None Oncologic (Cancer) History: Reports: None Dermatologic History: Reports: Eczema - Infectious Disease History Infectious Disease History: Reports: None - Past Surgical History Head Surgeries/Procedures: Reports: None HEENT Surgical History: Reports: Adenoidectomy Cardiovascular Surgical History: Reports: None GI Surgical History: Reports: None Musculoskeletal Surgical History: Reports: None Social & Family History - Family History Family Medical History: Noncontributory - Tobacco Use Smoking Status *Q: Never Smoker Second Hand Smoke Exposure: Yes - Caffeine Use Caffeine Use: Reports: None Other Caffeine Use: switched to decaf coffee - Recreational Drug Use Recreational Drug Use: No - Living Situation & Occupation Living situation: Reports: with Family H&P Review of Systems - Review of Systems: Review Of Systems: See Below General: Reports: No Symptoms HEENT: Reports: No Symptoms Pulmonary: Reports: No Symptoms Cardiovascular: Reports: Palpitations Gastrointestinal: Reports: No Symptoms Genitourinary: Reports: No Symptoms Musculoskeletal: Reports: No Symptoms Skin: Reports: No Symptoms Psychiatric: Reports: No Symptoms Exam - Exam Exam: See Below - Vital Signs Vital Signs: Last Vital Signs Temp 37.1 C 07/01/19 21:48 Pulse 95 07/01/19 21:48 Resp 16 07/01/19 21:48 BP 130/74 07/01/19 21:48 Pulse Ox 95 07/01/19 21:48 Weight: 81.873 kg - Exam General: Alert, Oriented HEENT: Conjunctiva Clear Neck: Supple, Trachea Midline Lungs: Clear to Auscultation, Normal Respiratory Effort Cardiovascular: Regular Rate, Irregular Rhythm GI/Abdominal Exam: Normal Bowel Sounds, Soft, Non-Tender, No Organomegaly Extremities: Normal Inspection, Normal Range of Motion, Non-Tender, No Pedal Edema - Patient Data Lab Results Last 24 hrs: Laboratory Results - last 24 hr 07/01/19 07/01/19 Range/Units 20:15 20:15 WBC 7.4 (5.0-10.0) 10^3/uL RBC 5.39 (4.6-6.2) 10^6/uL Hgb 17.0 (14.0-18.0) g/dL Hct 49.5 (40.0-54.0) % MCV 91.8 (80-100) fL MCH 31.5 (27.0-34.0) pg MCHC 34.3 (33.0-35.0) g/dL Plt Count 180 (150-450) 10^3/uL Neut % (Auto) 43.3 (42.2-75.2) % Lymph % (Auto) 43.3 (20.5-50.1) % [place] % (Auto) 10.0 H (2-8) % Eos % (Auto) 3.0 (1.0-3.0) % Baso % (Auto) 0.4 (0.0-1.0) % Sodium 140 (135-145) mmol/L Potassium 3.4 L (3.6-5.0) mmol/L Chloride 104 (101-111) mmol/L Carbon Dioxide 27.0 (21.0-31.0) mmol/L Anion Gap 12.4 BUN 24 H (7-18) mg/dL Creatinine 1.2 (0.6-1.3) mg/dL Est Cr Clr Drug Dosing 67.11 mL/min Estimated GFR (MDRD) > 60 BUN/Creatinine Ratio 20.00 Glucose 114 H (74-105) mg/dL Calcium 9.4 (8.4-10.2) mg/dl Total Bilirubin 1.0 (0.2-1.0) mg/dL AST 28 (10-42) IU/L ALT 29 (10-60) IU/L Alkaline Phosphatase 62 (42-121) IU/L Troponin I < 0.02 (0.00-0.02) ng/ml Total Protein 7.8 (6.7-8.2) g/dl Albumin 4.6 (3.2-5.5) g/dl Globulin 3.2 Albumin/Globulin Ratio 1.44 Result Diagrams: 07/01/19 20:15 07/01/19 20:15 Imaging Impressions Last 24 hrs: CXR: clear, no infiltrates or effusions Troponin: negative EKG INTERPRETATION Rhythm: A-Fib Problem List Initiated/Reviewed/Updated: Yes Orders Last 24hrs: Active Orders 24 hr Category Date Time Status Admission Diagnosis [ADT] Stat ADT 07/01/19 21:37 Ordered Admission Status [Patient Status] [ADT] Routine ADT 07/01/19 21:37 Active Ambulate [RC] ASDIRECTED Care 07/01/19 23:18 Ordered EKG Documentation Completion [RC] URGENT Care 07/01/19 20:07 Active EKG Documentation Completion [RC] URGENT Care 07/01/19 21:48 Active Height and Weight [RC] DAILY Care 07/01/19 23:18 Ordered Oxygen Therapy [RC] PRN Care 07/01/19 23:18 Ordered Up With Assistance [RC] ASDIRECTED Care 07/01/19 23:18 Ordered VTE/DVT Education [RC] PER UNIT ROUTINE Care 07/01/19 23:18 Ordered Vital Signs [RC] Q4H Care 07/01/19 23:18 Ordered Regular Diet [DIET] Diet 07/02/19 Breakfast Ordered Chest 1V Frontal [CR] Urgent Exams 07/01/19 20:07 Taken B-TYPE NATRIURETIC PEPTIDE,BNP [CHEM] AM Lab 07/02/19 05:11 Ordered BASIC METABOLIC PANEL,BMP [CHEM] AM Lab 07/02/19 05:11 Ordered CBC W/O DIFF,HEMOGRAM [HEME] AM Lab 07/02/19 05:11 Ordered MAGNESIUM [CHEM] AM Lab 07/02/19 05:11 Ordered TROPONIN I [CHEM] AM Lab 07/02/19 05:11 Ordered Clopidogrel [Plavix] Med 07/02/19 09:00 Ordered 75 mg PO DAILY Diltiazem 125 mg Med 07/01/19 21:03 Active Sodium Chloride 0.9% [Normal Saline] 100 ml IV TITRATE Metoprolol Succinate [Toprol XL] Med 07/02/19 09:00 Ordered 50 mg PO DAILY Pantoprazole [ProTONIX] Med 07/02/19 09:00 Ordered 40 mg PO DAILY Vit A/Vit C/Vit E/Zinc/Copper [Icaps Areds Formula] Med 07/02/19 09:00 Ordered 2 cap PO BID atorvaSTATin [Lipitor] Med 07/02/19 09:00 Ordered 20 mg PO DAILY Resuscitation Status Routine Resus Stat 07/01/19 23:18 Ordered Medication Orders Atorvastatin Calcium (Lipitor) 20 mg PO DAILY [facility] Clopidogrel Bisulfate (Plavix) 75 mg PO DAILY [facility] Diltiazem HCl 125 mg/ Sodium (Chloride) 125 mls @ 5 mls/hr IV TITRATE [facility]; Protocol Last Admin: 07/01/19 21:20 Dose: 5 mg/hr, 5 mls/hr Titration: 07/01/19 21:20 Dose: 0 mg/hr, 0 mls/hr Admin: 07/01/19 21:19 Dose: 5 mg/hr, 5 mls/hr Metoprolol Succinate (Toprol Xl) 50 mg PO DAILY [facility] Multivitamins/Minerals (I-Lizbet) 2 each PO BID [facility] Pantoprazole Sodium (Protonix) 40 mg PO ACBREAKFAST [facility] Assessment/Plan Comment:: Afib with RVR Rate control: continue on cardizem gtt and wean off as tolerated. Will increase dose of metoprolol Anticoagulation: CHADSVASC 11/28. Discussed the benefit of anticoagulation with the patient and we will start NOAC tomorrow. Will do clopidogrel + NOAC. Hold asa Check troponin, BNP in the AM Hx of CAD no chest pain continue plavix, statin, BB Hx of GERD continue PPI DVT ppx SC lovenox Code status FC
[2019-07-02] MEDS ORDERED: Enoxaparin 40 MG/0.4 ML Syringe SUBCUT ONE
[2019-07-02] MEDS ORDERED: Pantoprazole 40 MG Tab.CR PO SCH (06:00)
[2019-07-02 07:12] LABS: ANION GAP 13.9; CHLORIDE,CL 107 mmol/L (101-111); SODIUM,NA 142 mmol/L (135-145)
[2019-07-02] MEDS ORDERED: atorvaSTATin 20 MG Tab PO SCH (09:00)
[2019-07-02] MEDS ORDERED: Lutein/Minerals/Vit A,C & E Tab PO SCH (09:00)
[2019-07-02] MEDS ORDERED: Clopidogrel 75 MG Tab PO SCH (09:00)
[2019-07-02] MEDS ORDERED: Metoprolol Succinate 50 MG Tab.ER PO SCH (09:00)
[2019-07-02] MEDS ORDERED: [UNRECOGNIZED DRUG - REMARK] PO SCH ×2 (10:15→21:00)
[2019-07-02] MEDS ORDERED: Metoprolol Tartrate 50 MG Tab PO SCH (11:30)
--- NOTE | 2019-07-02 11:51 | PCM.DCSUM1 ---
Discharge Summary - Hospital Course Free Text/Narrative:: 64 yo M with PMH of HTN, CAD (PCI in Nov 2018), GERD, HLD who p/w palpitations. Sudden onset of palpitations this evening NO chest pain Associated SOB No nausea, no diaphoresis, no leg swelling, no dyspnea In ED, found to be in new afib with RVR. Started on cardizem gtt EKG: afib Troponin: negative BNP: 129, mildly elevated. Non-remarkable (300 will be cut off for CHF in this patient) HR control improved. Was taken off cardizem gtt. Metoprolol XL 50 mg daily was switched to metoprolol tartrate 50 mg BID Discussed anticoagulation with the patient and he agrees to start Eliquis for stroke prevention Stopped Aspirin to reduce bleeding risk. Continue plavix Follow up with [facility], outpatient 2D echo Follow up with PCP Spent considerable time on patient education regarding Afib > 35 mins spent in talking with patient. Diagnosis: Stroke: No Modified [place] Scale: No Symptoms at All Modified [place] Scale Score: 0 - Discharge Data Discharge Date: 07/02/19 Discharge Disposition: Home, Self-Care 01 Condition: Good - Referral to Home Health Primary Care Physician: PCP Unknown - Patient Instructions Diet: Heart Healthy Diet Activity: As Tolerated, Full Weight Bearing Driving: May Drive Today Showering/Bathing: May Shower - Discharge Plan Prescriptions/Med Rec: Metoprolol Tartrate [Lopressor] 50 mg PO Q12HR 90 Days #180 tablet Apixaban [Eliquis] 5 mg PO BID 90 Days #180 tablet Home Medications: Home Meds atorvaSTATin [Lipitor] 20 mg PO DAILY 09/10/18 [History] Pantoprazole [ProTONIX] 40 mg PO DAILY 10/26/18 [History] Methylcellulose (with Sugar) [Citrucel] 1 tbsp PO DAILY 10/27/18 [History] Vit A/Vit C/Vit E/Zinc/Copper [Icaps Areds Formula] 2 cap PO BID 10/27/18 [ History] Clopidogrel Bisulfate [Clopidogrel] 75 mg PO DAILY 12/21/18 [History] Apixaban [Eliquis] 5 mg PO BID 90 Days #180 tablet 07/02/19 [Rx] Metoprolol Tartrate [Lopressor] 50 mg PO Q12HR 90 Days #180 tablet 07/02/19 [Rx] Patient Handouts: Metoprolol tablets, Apixaban oral tablets, Atrial Fibrillation, [id number] Referrals: PCP,Unknown [Primary Care Provider] - - Discharge Summary/Plan Comment DC Time >30 min.: Yes - General Info Date of Service: 07/02/19 Admission Dx/Problem (Free Text: Admission Diagnosis/Problem Admission Diagnosis/Problem Atrial fibrillation Subjective Update: Feels better No chest pain, no palpitations - Review of Systems General: Reports: No Symptoms HEENT: Reports: No Symptoms Pulmonary: Reports: No Symptoms Cardiovascular: Reports: No Symptoms Gastrointestinal: Reports: No Symptoms Genitourinary: Reports: No Symptoms Musculoskeletal: Reports: No Symptoms Skin: Reports: No Symptoms - Patient Data Vitals - Most Recent: Last Vital Signs Temp 37.1 C 07/02/19 04:07 Pulse 82 07/02/19 08:47 Resp 18 07/02/19 08:00 BP 124/77 07/02/19 08:47 Pulse Ox 96 07/02/19 08:00 Weight - Most Recent: 81.919 kg I&O - Last 24 hours: Intake & Output 07/01/19 07/02/19 07/02/19 22:59 06:59 14:59 Intake Total 284 15 Output Total 726 550 Balance -215 -216 15 Lab Results - Last 24 hrs: Laboratory Results - last 24 hr 07/01/19 07/01/19 07/02/19 Range/Units 20:15 20:15 06:15 WBC 7.4 7.4 (5.0-10.0) 10^3/uL RBC 5.39 5.21 (4.6-6.2) 10^6/uL Hgb 17.0 16.5 (14.0-18.0) g/dL Hct 49.5 47.7 (40.0-54.0) % MCV 91.8 91.6 (80-100) fL MCH 31.5 31.7 (27.0-34.0) pg MCHC 34.3 34.6 (33.0-35.0) g/dL Plt Count 180 180 (150-450) 10^3/uL Neut % (Auto) 43.3 (42.2-75.2) % Lymph % (Auto) 43.3 (20.5-50.1) % [place] % (Auto) 10.0 H (2-8) % Eos % (Auto) 3.0 (1.0-3.0) % Baso % (Auto) 0.4 (0.0-1.0) % Sodium 140 (135-145) mmol/L Potassium 3.4 L (3.6-5.0) mmol/L Chloride 104 (101-111) mmol/L Carbon Dioxide 27.0 (21.0-31.0) mmol/L Anion Gap 12.4 BUN 24 H (7-18) mg/dL Creatinine 1.2 (0.6-1.3) mg/dL Est Cr Clr Drug Dosing 67.11 mL/min Estimated GFR (MDRD) > 60 BUN/Creatinine Ratio 20.00 Glucose 114 H (74-105) mg/dL Calcium 9.4 (8.4-10.2) mg/dl Magnesium (1.8-2.5) mg/dL Total Bilirubin 1.0 (0.2-1.0) mg/dL AST 28 (10-42) IU/L ALT 29 (10-60) IU/L Alkaline Phosphatase 62 (42-121) IU/L Troponin I < 0.02 (0.00-0.02) ng/ml B-Natriuretic Peptide (0-100) pg/ml Total Protein 7.8 (6.7-8.2) g/dl Albumin 4.6 (3.2-5.5) g/dl Globulin 3.2 Albumin/Globulin Ratio 1.44 09/13/19 Range/Units 06:15 WBC (5.0-10.0) 10^3/uL RBC (4.6-6.2) 10^6/uL Hgb (14.0-18.0) g/dL Hct (40.0-54.0) % MCV (80-100) fL MCH (27.0-34.0) pg MCHC (33.0-35.0) g/dL Plt Count (150-450) 10^3/uL Neut % (Auto) (42.2-75.2) % Lymph % (Auto) (20.5-50.1) % [place] % (Auto) (2-8) % Eos % (Auto) (1.0-3.0) % Baso % (Auto) (0.0-1.0) % Sodium 142 (135-145) mmol/L Potassium 3.9 (3.6-5.0) mmol/L Chloride 107 (101-111) mmol/L Carbon Dioxide 25.0 (21.0-31.0) mmol/L Anion Gap 13.9 BUN 23 H (7-18) mg/dL Creatinine 1.0 (0.6-1.3) mg/dL Est Cr Clr Drug Dosing 80.53 mL/min Estimated GFR (MDRD) > 60 BUN/Creatinine Ratio Glucose 104 (74-105) mg/dL Calcium 9.3 (8.4-10.2) mg/dl Magnesium 2.3 (1.8-2.5) mg/dL Total Bilirubin (0.2-1.0) mg/dL AST (10-42) IU/L ALT (10-60) IU/L Alkaline Phosphatase (42-121) IU/L Troponin I < 0.02 (0.00-0.02) ng/ml B-Natriuretic Peptide 126 H (0-100) pg/ml Total Protein (6.7-8.2) g/dl Albumin (3.2-5.5) g/dl Globulin Albumin/Globulin Ratio Med Orders - Current: Current Medications Atorvastatin Calcium (Lipitor) 20 mg PO DAILY [facility] Last Admin: 07/02/19 08:47 Dose: 20 mg Clopidogrel Bisulfate (Plavix) 75 mg PO DAILY [facility] Last Admin: 07/02/19 08:47 Dose: 75 mg Enoxaparin Sodium (Lovenox) 40 mg SUBCUT Q24H [facility] Metoprolol Tartrate (Lopressor) 50 mg PO Q12HR [facility] Multivitamins/Minerals (I-Lizbet) 2 each PO BID [facility] Last Admin: 07/02/19 08:47 Dose: 2 each Apixaban (Eliquis) * (*Non-Form Med) 0 each PO BID [facility] Pantoprazole Sodium (Protonix) 40 mg PO ACBREAKFAST [facility] Last Admin: 07/02/19 07:17 Dose: 40 mg Discontinued Medications Diltiazem HCl (Diltiazem) 25 mg IVPUSH ONETIME ONE Stop: 07/01/19 20:15 Last Admin: 07/01/19 20:22 Dose: 20 mg Diltiazem HCl (Diltiazem) 20 mg IVPUSH ONETIME ONE Stop: 07/01/19 20:42 Last Admin: 07/01/19 20:46 Dose: 20 mg Enoxaparin Sodium (Lovenox) 40 mg SUBCUT ONETIME ONE Stop: 07/02/19 00:01 Last Admin: 07/01/19 23:51 Dose: 40 mg Diltiazem HCl 125 mg/ Sodium (Chloride) 125 mls @ 5 mls/hr IV TITRATE [facility]; Protocol Last Titration: 07/02/19 09:55 Dose: 0 mg/hr, 0 mls/hr Metoprolol Succinate (Toprol Xl) 50 mg PO DAILY [facility] Last Admin: 07/02/19 08:47 Dose: 50 mg Potassium Chloride (Klor-Con 10) 40 meq PO ONETIME ONE Stop: 07/01/19 23:21 Last Admin: 07/01/19 23:34 Dose: 40 meq - Exam General: Reports: Alert, Oriented HEENT: Reports: Pupils Equal, Pupils Reactive Neck: Reports: Supple Lungs: Reports: Clear to Auscultation, Normal Respiratory Effort Cardiovascular: Reports: Regular Rate, Regular Rhythm GI/Abdominal Exam: Normal Bowel Sounds, Soft, Non-Tender, No Organomegaly Extremities: Normal Inspection, Normal Range of Motion, Non-Tender, No Pedal Edema
[2019-07-02 12:09] VITALS: BP 140/78; PULSE 112
[2019-07-02] MEDS ORDERED: Enoxaparin 40 MG/0.4 ML Syringe SUBCUT SCH (21:00)
== END 2019-07-02 13:31 | disposition home or self-care (01) ==
LOC: DL.ED 19:56 → DL.MS 21:37 → UNDOADMOB 21:42
PROVIDERS: ADMIT Hospitalist; ATTEND Hospitalist
DX: I48.91 Unspecified atrial fibrillation (principal); I10 Essential (primary) hypertension; I25.10 Atherosclerotic heart disease of native coronary artery without angina pectoris; E78.00 Pure hypercholesterolemia, unspecified; K21.9 Gastro-esophageal reflux disease without esophagitis; Z95.5 Presence of coronary angioplasty implant and graft; Z79.82 Long term (current) use of aspirin; Z79.02 Long term (current) use of antithrombotics/antiplatelets; Z79.899 Other long term (current) drug therapy
CPT/HCPCS: 36415; 71045; 80048; 80053; 83735; 83880; 84484; 85025; 85027; 93005; 96365; 99285; A9270; J1650; J3490; J7050; 96366; 96372; G0378

== ENCOUNTER 2019-07-22 18:22 | Emergency (ER) | payer OTHER ==
[2019-07-22 18:45] VITALS: BP 161/77; PULSE 58
--- NOTE | 2019-07-22 19:18 | EDM.PDOC ---
ED HPI GENERAL MEDICAL PROBLEM - General Chief Complaint: Chest Pain Stated Complaint: CHILLS, HIGH BLOOD PRESSURE, CHEST PAIN Time Seen by Provider: 07/22/19 19:02 Source of Information: Reports: Patient History Limitations: Reports: No Limitations - History of Present Illness INITIAL COMMENTS - FREE TEXT/NARRATIVE: This 64 yo male patient reports to the ED with chest pain, jaw pain and intermittent shortness of breath. The patient reports his chest pain has been intermittent for the past 1 1/2 years. The patient reports his jaw pain started to get worse this week. The patient reports he had a tooth pulled last month, but the dentist does not know if they got the root. The patient reports he has been experiencing shortness of breath with exertion. The patient reports his shortness of breath has been consistent since he was diagnosed with Pleurisy. The also reports he has been feeling like he has had a fever and chills throughout the day. Onset: Unknown/Unsure Duration: Intermittent Location: Reports: Face, Chest, Generalized Quality: Reports: Other Severity: Moderate Improves with: Reports: None Worsens with: Reports: None Context: Reports: Other Associated Symptoms: Reports: No Other Symptoms Chest Pain Score (Numeric/FACES): 6 - Related Data Allergies Allergy/AdvReac Type Severity Reaction Status Date / Time No Known Allergies Allergy Verified 07/01/19 21:49 Home Meds: Home Meds atorvaSTATin [Lipitor] 20 mg PO DAILY 09/10/18 [History] Pantoprazole [ProTONIX] 40 mg PO DAILY 10/26/18 [History] Methylcellulose (with Sugar) [Citrucel] 1 tbsp PO DAILY 10/27/18 [History] Vit A/Vit C/Vit E/Zinc/Copper [Icaps Areds Formula] 2 cap PO BID 10/27/18 [ History] Clopidogrel Bisulfate [Clopidogrel] 75 mg PO DAILY 12/21/18 [History] Apixaban [Eliquis] 5 mg PO BID 90 Days #180 tablet 07/02/19 [Rx] Metoprolol Tartrate [Lopressor] 50 mg PO Q12HR 90 Days #180 tablet 07/02/19 [Rx] Past Medical History HEENT History: Reports: Impaired Vision, Other (See Below) Other HEENT History: CONJUNCTIVITIS, ringing in L) ear occasionally. Wears glasses Cardiovascular History: Reports: High Cholesterol, Hypertension, PTCA, Stents Other Cardiovascular History: TREADMILL STRESS TEST 2011. Ptca with stents Respiratory History: Reports: None Other Respiratory History: States has pluerisy Gastrointestinal History: Reports: Diverticulosis, GERD, Other (See Below) Other Gastrointestinal History: colonoscopy 03/18/17 Genitourinary History: Reports: Renal Calculus Musculoskeletal History: Reports: Back Pain, Chronic, Fracture Other Musculoskeletal History: FINGER FRACTURE(CRUSH) Neurological History: Reports: Vertigo Psychiatric History: Reports: Anxiety Endocrine/Metabolic History: Reports: None Hematologic History: Reports: None Immunologic History: Reports: None Oncologic (Cancer) History: Reports: None Dermatologic History: Reports: Eczema - Infectious Disease History Infectious Disease History: Reports: None - Past Surgical History Head Surgeries/Procedures: Reports: None HEENT Surgical History: Reports: Adenoidectomy Cardiovascular Surgical History: Reports: None GI Surgical History: Reports: None Musculoskeletal Surgical History: Reports: None Social & Family History - Family History Family Medical History: Noncontributory - Caffeine Use Caffeine Use: Reports: None Other Caffeine Use: switched to decaf coffee - Living Situation & Occupation Living situation: Reports: with Family ED ROS GENERAL - Review of Systems Review Of Systems: ROS reveals no pertinent complaints other than HPI. ED EXAM, GENERAL - Physical Exam Exam: See Below Exam Limited By: No Limitations General Appearance: Alert, WD/WN, Moderate Distress Eye Exam: Bilateral Eye: EOMI, Normal Inspection, PERRL Ears: Normal External Exam, Normal Canal, Hearing Grossly Normal, Normal TMs Nose: Normal Inspection, Normal Mucosa, No Blood Throat/Mouth: Normal Inspection, Normal Lips, Normal Teeth, Normal Gums, Normal Oropharynx, Normal Voice, No Airway Compromise Head: Atraumatic, Normocephalic Neck: Normal Inspection, Supple, Non-Tender, Full Range of Motion Respiratory/Chest: No Respiratory Distress, Lungs Clear, Normal Breath Sounds, No Accessory Muscle Use, Chest Non-Tender Cardiovascular: Normal Peripheral Pulses, Regular Rate, Rhythm, No Edema, No Gallop, No JVD, No Murmur, No Rub GI/Abdominal: Normal Bowel Sounds, Soft, Non-Tender, No Organomegaly, No Distention, No Abnormal Bruit, No Mass (Male) Exam: Deferred Rectal (Males) Exam: Deferred Back Exam: Normal Inspection, Full Range of Motion, NT Extremities: Normal Inspection, Normal Range of Motion, Non-Tender, Normal Capillary Refill, No Pedal Edema Neurological: Alert, Oriented, CN II-XII Intact, Normal Cognition, Normal Gait, Normal Reflexes, No Motor/Sensory Deficits Psychiatric: Normal Affect, Normal Mood Skin Exam: Warm, Dry, Intact, Normal Color, No Rash Lymphatic: No Adenopathy Course - Vital Signs Last Recorded V/S: Last Vital Signs Temp 36.9 C 07/22/19 18:31 Pulse 58 L 07/22/19 18:31 Resp 18 07/22/19 18:31 BP 161/77 H 07/22/19 18:31 Pulse Ox 96 07/22/19 18:31 - Orders/Labs/Meds Orders: Active Orders 24 hr Category Date Time Status EKG Documentation Completion [RC] URGENT Care 07/22/19 18:59 Active Labs: Laboratory Tests 07/22/19 07/22/19 Range/Units 19:05 19:05 WBC 6.9 (5.0-10.0) 10^3/uL RBC 5.22 (4.6-6.2) 10^6/uL Hgb 16.5 (14.0-18.0) g/dL Hct 47.6 (40.0-54.0) % MCV 91.2 (80-100) fL MCH 31.6 (27.0-34.0) pg MCHC 34.7 (33.0-35.0) g/dL Plt Count 170 (150-450) 10^3/uL Neut % (Auto) 61.7 (42.2-75.2) % Lymph % (Auto) 25.9 (20.5-50.1) % [place] % (Auto) 8.9 H (2-8) % Eos % (Auto) 2.9 (1.0-3.0) % Baso % (Auto) 0.6 (0.0-1.0) % Sodium 140 (135-145) mmol/L Potassium 3.9 (3.6-5.0) mmol/L Chloride 104 (101-111) mmol/L Carbon Dioxide 28.0 (21.0-31.0) mmol/L Anion Gap 11.9 BUN 20 H (7-18) mg/dL Creatinine 1.1 (0.6-1.3) mg/dL Est Cr Clr Drug Dosing 73.21 mL/min Estimated GFR (MDRD) > 60 BUN/Creatinine Ratio 18.18 Glucose 103 (74-105) mg/dL Calcium 9.3 (8.4-10.2) mg/dl Total Bilirubin 1.0 (0.2-1.0) mg/dL AST 30 (10-42) IU/L ALT 23 (10-60) IU/L Alkaline Phosphatase 66 (42-121) IU/L Troponin I < 0.02 (0.00-0.02) ng/ml Total Protein 7.7 (6.7-8.2) g/dl Albumin 4.5 (3.2-5.5) g/dl Globulin 3.2 Albumin/Globulin Ratio 1.41 Meds: Medications Discontinued Medications Generic Name Dose Route Start Last Admin Trade Name Freq PRN Reason Stop Dose Admin Clindamycin HCl 300 mg 07/22/19 20:32 Cleocin PO 07/22/19 20:33 ONETIME ONE Departure - Departure Time of Disposition: 20:35 Disposition: Home, Self-Care 01 Condition: Fair Clinical Impression: Dental abscess Instructions: Dental Abscess, [id number] Forms: ED Department Discharge Care Plan Goals: The patient was advised of the examination results during the visit. The patient was given an oral dose of Clindamycin (300 mg) while in the ED. The patient was given a script for Clindamycin (300 mg) to take 1 by mouth 4 times per day for 10 days. The patient was encouraged to follow-up with a dentist this week for continued evaluation and further management. If the patient has any additional symptoms or concerns, the patient should either follow-up with her primary care facility or return to the emergency department - My Orders Last 24 Hours: My Active Orders 07/22/19 18:59 EKG Documentation Completion [RC] [facility]RG[facility] - Assessment/Plan Last 24 Hours: My Active Orders 07/22/19 18:59 EKG Documentation Completion [RC] [facility]RG[facility]
[2019-07-22 19:40] LABS: ANION GAP 11.9; CHLORIDE,CL 104 mmol/L (101-111); SODIUM,NA 140 mmol/L (135-145)
[2019-07-22] MEDS ORDERED: Clindamycin HCl 150 MG Cap PO ONE (20:32)
== END 2019-07-22 20:55 | disposition home or self-care (01) ==
LOC: DL.ED 18:22
DX: K04.7 Periapical abscess without sinus (principal); I10 Essential (primary) hypertension; E78.00 Pure hypercholesterolemia, unspecified; F41.9 Anxiety disorder, unspecified; Z79.899 Other long term (current) drug therapy
CPT/HCPCS: 36415; 80053; 84484; 85025; 99285; A9270

== ENCOUNTER 2019-12-06 05:48 | Day surgery (SDC) | payer OTHER ==
[2019-12-06] MEDS ORDERED: fentaNYL 100 MCG/2 ML SDV IV ONE ×3 (05:49→06:51)
[2019-12-06] MEDS ORDERED: Midazolam 1 MG/ML 2 ML SDV IV ONE ×7 (05:49→06:57)
[2019-12-06] MEDS ORDERED: Midazolam 1 MG/ML 2 ML SDV ONE (06:13)
[2019-12-06] MEDS ORDERED: fentaNYL 100 MCG/2 ML SDV ONE (06:14)
[2019-12-06] MEDS ORDERED: Dextrose 5%-0.45% NaCl 1,000 ML IV SCH (06:30)
[2019-12-06 10:36] VITALS: BP 131/65; PULSE 59
--- NOTE | 2019-12-06 12:12 | OR ---
DATE: 12/06/2019 PROCEDURE: Total colonoscopy. INSTRUMENT USED: [id number] Olympus video colonoscope. PREMEDICATIONS: Fentanyl 100 mcg intravenous, Versed 4 mg intravenous. Nasal O2 cannula. The procedure was done under pulse oximetry, BP recording, and cardiac nurse specialist. INDICATION: The patient with rectal bleeding. Colonoscopic examination is done for detection of any polypoid lesions and removal, endoscopic hemostasis therapy if needed. DESCRIPTION OF PROCEDURE: Rectal exam was unremarkable. Rigid anoscopy showed small internal hemorrhoids without bleeding. The colonoscope was passed with ease up to the ileocecal area. Photographs were taken and the normal-appearing cecum identified by landmarks of appendiceal orifice and double-bulged ileocecal folds. No bleeding was noted from any of the visualized areas at the commencement of the examination. The bowel preparation was found to be adequate. [place] score 3 in the right colon and transverse colon, 2 in the left colon, total score of 8. No stricture. No vascular ectasia. No large isolated ulcerations seen. No evidence of diffuse inflammatory bowel disease in the form of friability, contact bleeding, or ulcerations. No polyp or tumor mass identified. Probing the proximal sides of folds and flexures using adequate distention and clearing up the stool material, withdrawal of the scope was made. Cecum to rectum time over 6 minutes. No bleeding was noted from any of the visualized areas at the completion of examination. IMPRESSION: Internal hemorrhoids. The patient tolerated the procedure well. [facility] /[id number]
== END 2019-12-06 09:15 | disposition home or self-care (01) ==
LOC: DL.ENDO 05:48
PROVIDERS: ATTEND Internal Medicine Gastroenterology
DX: K64.8 Other hemorrhoids (principal); I10 Essential (primary) hypertension; E78.5 Hyperlipidemia, unspecified; E78.00 Pure hypercholesterolemia, unspecified; K57.30 Diverticulosis of large intestine without perforation or abscess without bleeding; N20.0 Calculus of kidney; I25.10 Atherosclerotic heart disease of native coronary artery without angina pectoris; I48.0 Paroxysmal atrial fibrillation; K21.9 Gastro-esophageal reflux disease without esophagitis; Z80.0 Family history of malignant neoplasm of digestive organs; Z79.01 Long term (current) use of anticoagulants
CPT/HCPCS: 45378; J2250; J3010; J7042; G0121

== ENCOUNTER 2020-01-31 15:07 | Emergency (ER) | payer OTHER ==
[2020-01-31 15:20] VITALS: BP 168/74; PULSE 69
[2020-01-31] MEDS ORDERED: Aspirin 81 MG Tab.Chew PO ONE (15:24)
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
[2020-01-31] MEDS ORDERED: Aspirin 81 MG Tab.Chew ONE (15:40)
[2020-01-31 16:04] LABS: ANION GAP 14.8 mEq/L (7-13); CHLORIDE,CL 105 mmol/L (98-107); SODIUM,NA 143 mmol/L (136-145)
--- NOTE | 2020-01-31 16:28 | CR ---
EXAMINATION: Chest 1V Frontal SEX: Male AGE: 64 years CLINICAL HISTORY: 64-year-old male complaining of CHEST PAIN. Comparison chest x-ray 01 July 2019. INTERPRETATION: No acute new cardiopulmonary abnormality identified in the interval since June 2019. 1. Normal cardiac silhouette and pulmonary vascularity. No new vascular congestion, cephalization of flow, alveolar edema or dependent pleural fluid accumulation. (External security monitor leads) 2. No new lung mass, hilar lymphadenopathy or focal lobar pneumonia. 3. No atelectasis/collapse 4. No pneumothorax or pneumomediastinum. Midline tracheostomy and proximal bronchi unremarkable.
== END 2020-01-31 16:26 | disposition home or self-care (01) ==
LOC: DL.ED 15:07
DX: R07.9 Chest pain, unspecified (principal); I10 Essential (primary) hypertension; I25.10 Atherosclerotic heart disease of native coronary artery without angina pectoris; E78.00 Pure hypercholesterolemia, unspecified; K21.9 Gastro-esophageal reflux disease without esophagitis; F41.9 Anxiety disorder, unspecified; Z79.01 Long term (current) use of anticoagulants; Z79.82 Long term (current) use of aspirin; Z79.899 Other long term (current) drug therapy
CPT/HCPCS: 36415; 71045; 80053; 84484; 85025; 93005; 99285; A9270

== ENCOUNTER 2020-08-11 17:39 | Emergency (ER) | payer OTHER ==
[2020-08-11 17:52] VITALS: BP 167/78; PULSE 63
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
[2020-08-11] MEDS ORDERED: Ketorolac 30 MG/ML SDV IM ONE (18:55)
== END 2020-08-11 19:10 | disposition home or self-care (01) ==
LOC: DL.ED 17:39
DX: S16.1XXA Strain of muscle, fascia and tendon at neck level, initial encounter (principal); M54.6 Pain in thoracic spine; I10 Essential (primary) hypertension; I25.10 Atherosclerotic heart disease of native coronary artery without angina pectoris; K21.9 Gastro-esophageal reflux disease without esophagitis; E78.00 Pure hypercholesterolemia, unspecified; Z95.5 Presence of coronary angioplasty implant and graft; Z79.82 Long term (current) use of aspirin; Z79.899 Other long term (current) drug therapy; V49.9XXA Car occupant (driver) (passenger) injured in unspecified traffic accident, initial encounter
CPT/HCPCS: 72040; 72072; 72100; 96372; 99283; J1885

== ENCOUNTER 2021-02-02 21:54 | Emergency (ER) | payer OTHER ==
[2021-02-02] MEDS ORDERED: Aspirin 81 MG Tab.Chew PO ONE (21:58)
--- NOTE | 2021-02-02 22:06 | EDM.PDOC ---
ED HPI GENERAL MEDICAL PROBLEM - General Chief Complaint: Chest Pain Time Seen by Provider: 02/02/21 21:55 Source of Information: Reports: Patient History Limitations: Reports: No Limitations - History of Present Illness INITIAL COMMENTS - FREE TEXT/NARRATIVE: This 65 yo male patient reports to the ED with chest pain that started about 15- 20 minutes prior to his arrival (2129). The patient currently rates his chest pain at a 3-4/10. The patient reports he has pain radiating to his left arm (axilla to the 4th and 5th fingers). The patient reports he took an anxiety medication prior to coming to the ED with some relief of his symptoms. Onset: Today Onset Date: 02/02/21 Onset Time: 21:30 Duration: Improving Location: Reports: Chest, Upper Extremity, Left Quality: Reports: Ache, Dull Severity: Moderate Improves with: Reports: None Worsens with: Reports: None Context: Reports: Other Associated Symptoms: Reports: Chest Pain Treatments [employer] TESTING: Reports: Other Medication(s) Left Leg Pain Score (Numeric/FACES): 2 - Related Data Allergies Allergy/AdvReac Type Severity Reaction Status Date / Time No Known Allergies Allergy Verified 02/02/21 22:10 Home Meds: Home Meds atorvaSTATin [Lipitor] 40 mg PO BEDTIME 09/10/18 [History] Pantoprazole [ProTONIX] 40 mg PO DAILY 10/26/18 [History] Vit A/Vit C/Vit E/Zinc/Copper [Icaps Areds Formula] 2 cap PO BID 10/27/18 [History] Apixaban [Eliquis] 5 mg PO BID 90 Days #180 tablet 07/02/19 [Rx] Aspirin [Halfprin] 81 mg PO DAILY 12/03/19 [History] Calcium Carb, Citrate/Vit D3 [Citracal + D ER] 1 tab PO DAILY 12/03/19 [History] Metoprolol Tartrate [Lopressor] 100 mg PO DAILY 01/31/20 [History] Sertraline [Zoloft] 25 mg PO DAILY 09/12/20 [History] amLODIPine [Norvasc] 5 mg PO DAILY 09/12/20 [History] hydrOXYzine HCL [hydrOXYzine] 25 - 50 mg PO ASDIRECTED PRN 09/12/20 [History] Past Medical History HEENT History: Reports: Impaired Vision, Macular Degeneration, Other (See Below) Other HEENT History: ringing in L) ear occasionally. Wears glasses Cardiovascular History: Reports: CAD, Heart Murmur, High Cholesterol, Hypertension, PTCA, Stents Other Cardiovascular History: TREADMILL STRESS TEST 2011. Ptca with stents Respiratory History: Reports: Sleep Apnea, Other (See Below) Other Respiratory History: States has pluerisy Gastrointestinal History: Reports: Diverticulosis, GERD, Other (See Below) Other Gastrointestinal History: colonoscopy 03/18/17 Genitourinary History: Reports: Renal Calculus Musculoskeletal History: Reports: Back Pain, Chronic, Fracture Other Musculoskeletal History: FINGER FRACTURE(CRUSH) Neurological History: Reports: Concussion, Head Trauma, Vertigo Psychiatric History: Reports: Anxiety Endocrine/Metabolic History: Reports: Other (See Below) Other Endocrine/Metabolic History: Pre diabetic Hematologic History: Reports: None Immunologic History: Reports: None Oncologic (Cancer) History: Reports: None Dermatologic History: Reports: Eczema - Infectious Disease History Infectious Disease History: Reports: None - Past Surgical History Head Surgeries/Procedures: Reports: None HEENT Surgical History: Reports: Adenoidectomy Cardiovascular Surgical History: Reports: None GI Surgical History: Reports: Colonoscopy, EGD Male Surgical History: Reports: None Musculoskeletal Surgical History: Reports: None Social & Family History - Family History Family Medical History: No Pertinent Family History - Caffeine Use Caffeine Use: Reports: Soda Other Caffeine Use: OCCASIONAL SODA - Living Situation & Occupation Living situation: Reports: with Family ED ROS GENERAL - Review of Systems Review Of Systems: Comprehensive ROS is negative, except as noted in HPI. ED EXAM, GENERAL - Physical Exam Exam: See Below Exam Limited By: No Limitations General Appearance: Alert, WD/WN, Anxious, Mild Distress Eye Exam: Bilateral Eye: EOMI, Normal Inspection, PERRL Ears: Normal External Exam, Normal Canal, Hearing Grossly Normal, Normal TMs Nose: Normal Inspection, Normal Mucosa, No Blood Throat/Mouth: Normal Inspection, Normal Lips, Normal Teeth, Normal Gums, Normal Oropharynx, Normal Voice, No Airway Compromise Head: Atraumatic, Normocephalic Neck: Normal Inspection, Supple, Non-Tender, Full Range of Motion Respiratory/Chest: No Respiratory Distress, Lungs Clear, Normal Breath Sounds, No Accessory Muscle Use, Chest Non-Tender Cardiovascular: Normal Peripheral Pulses, Regular Rate, Rhythm, No Edema, No Gallop, No JVD, No Murmur, No Rub GI/Abdominal: Normal Bowel Sounds, Soft, Non-Tender, No Organomegaly, No Distention, No Abnormal Bruit, No Mass (Male) Exam: Deferred Rectal (Males) Exam: Deferred Back Exam: Normal Inspection, Full Range of Motion, NT Extremities: Normal Inspection, Normal Range of Motion, Non-Tender, Normal Capillary Refill, No Pedal Edema Neurological: Alert, Oriented, CN II-XII Intact, Normal Cognition, Normal Gait, Normal Reflexes, No Motor/Sensory Deficits Psychiatric: Normal Affect, Normal Mood Skin Exam: Warm, Dry, Intact, Normal Color, No Rash Lymphatic: No Adenopathy #1 Interpretation EKG Date: 02/02/21 Time: 22:02 Rhythm: NSR Rate (Beats/Min): 59 [place]: Normal P-Wave: Present QRS: Normal ST-T: Normal QT: Normal Comparison: No Change #2 Interpretation EKG Date: 02/03/21 Time: 01:55 Rhythm: NSR Rate (Beats/Min): 54 [place]: Normal P-Wave: Present QRS: Normal ST-T: Normal QT: Normal Comparison: No Change Course - Vital Signs Last Recorded V/S: Last Vital Signs Temp 37.2 C 02/03/21 01:45 Pulse 62 02/03/21 01:45 Resp 16 02/03/21 01:45 BP 121/72 02/03/21 01:45 Pulse Ox 97 02/03/21 01:45 - Orders/Labs/Meds Orders: Active Orders 24 hr Category Date Time Status EKG Documentation Completion [RC] STAT Care 02/02/21 21:55 Active EKG Documentation Completion [RC] URGENT Care 02/03/21 02:00 Active CULTURE BLOOD [BC] Stat Lab 02/02/21 22:00 Results Labs: Laboratory Tests 02/02/21 02/02/21 02/02/21 Range/Units 22:00 22:00 22:00 WBC 8.2 (5.0-10.0) 10^3/uL RBC 5.30 (4.6-6.2) 10^6/uL Hgb 16.3 (14.0-18.0) g/dL Hct 48.6 (40.0-54.0) % MCV 91.7 (80-100) fL MCH 30.8 (27.0-34.0) pg MCHC 33.5 (33.0-35.0) g/dL Plt Count 208 (150-450) 10^3/uL Neut % (Auto) 39.6 L (42.2-75.2) % Lymph % (Auto) 44.7 (20.5-50.1) % Owen % (Auto) 11.7 H (2-8) % Eos % (Auto) 3.5 H (1.0-3.0) % Baso % (Auto) 0.5 (0.0-1.0) % PT 9.8 (9.0-12.0) SEC INR 1.0 (0.9-1.2) D-Dimer, Quantitative 107 (0-400) ng/mL Sodium 143 (136-145) mmol/L Potassium 3.9 (3.5-5.1) mmol/L Chloride 105 (98-107) mmol/L Carbon Dioxide 29 (21-32) mmol/L Anion Gap 12.9 (7-13) mEq/L BUN 17 (7-18) mg/dL Creatinine 1.07 (0.70-1.30) mg/dL Est Cr Clr Drug Dosing 74.28 mL/min Estimated GFR (MDRD) > 60 BUN/Creatinine Ratio 15.9 (No establ ref range) Glucose 109 H (70-99) mg/dL Lactic Acid (0.4-2.0) mmol/L Calcium 8.9 (8.5-10.1) mg/dL Total Bilirubin 0.4 (0.2-1.0) mg/dL AST 16 (15-37) U/L ALT 26 (16-63) U/L Alkaline Phosphatase 107 (46-116) U/L Troponin I < 0.017 (0.000-0.056) ng/mL Total Protein 7.8 (6.4-8.2) g/dL Albumin 4.0 (3.4-5.0) g/dL Globulin 3.8 Albumin/Globulin Ratio 1.1 02/02/21 02/03/21 Range/Units 22:00 02:00 WBC (5.0-10.0) 10^3/uL RBC (4.6-6.2) 10^6/uL Hgb (14.0-18.0) g/dL Hct (40.0-54.0) % MCV (80-100) fL MCH (27.0-34.0) pg MCHC (33.0-35.0) g/dL Plt Count (150-450) 10^3/uL Neut % (Auto) (42.2-75.2) % Lymph % (Auto) (20.5-50.1) % Owen % (Auto) (2-8) % Eos % (Auto) (1.0-3.0) % Baso % (Auto) (0.0-1.0) % PT (9.0-12.0) SEC INR (0.9-1.2) D-Dimer, Quantitative (0-400) ng/mL Sodium (136-145) mmol/L Potassium (3.5-5.1) mmol/L Chloride (98-107) mmol/L Carbon Dioxide (21-32) mmol/L Anion Gap (7-13) mEq/L BUN (7-18) mg/dL Creatinine (0.70-1.30) mg/dL Est Cr Clr Drug Dosing mL/min Estimated GFR (MDRD) BUN/Creatinine Ratio (No establ ref range) Glucose (70-99) mg/dL Lactic Acid 1.3 (0.4-2.0) mmol/L Calcium (8.5-10.1) mg/dL Total Bilirubin (0.2-1.0) mg/dL AST (15-37) U/L ALT (16-63) U/L Alkaline Phosphatase (46-116) U/L Troponin I < 0.017 (0.000-0.056) ng/mL Total Protein (6.4-8.2) g/dL Albumin (3.4-5.0) g/dL Globulin Albumin/Globulin Ratio Meds: Medications Discontinued Medications Generic Name Dose Route Start Last Admin Trade Name Pasqualeq PRN Reason Stop Dose Admin Aspirin 324 mg 02/02/21 21:58 02/02/21 22:01 Aspirin 81 Mg Tab.Chew PO 02/02/21 21:59 324 mg ONETIME ONE Administration Departure - Departure Time of Disposition: 02:24 Disposition: Home, Self-Care 01 Condition: Fair Clinical Impression: Nonspecific chest pain Instructions: Nonspecific Chest Pain, Adult, [id number] Forms: ED Department Discharge Care Plan Goals: The patient was advised of the examination, lab, EKG, X-ray, repeat lab and repeat EKG results during the visit. The patient was encouraged to continue to monitor for any additional symptoms. The patient should follow-up with his primary care facility for further evaluation and management. If the patient has any additional symptoms or concerns, the patient should either return to the emergency department or visit his primary care facility. Sepsis Event Note (ED) - Focused Exam Vital Signs: Vital Signs Temp Pulse Resp BP Pulse Ox 02/03/21 01:45 37.2 C 62 16 121/72 97 02/03/21 00:45 36.9 C 53 L 16 122/74 96 02/03/21 00:03 36.4 C 53 L 16 130/78 97 02/02/21 22:45 36.3 C 57 L 16 147/73 H 98 02/02/21 21:56 36.8 C 68 18 160/70 H 99 - My Orders Last 24 Hours: My Active Orders 02/02/21 21:55 EKG Documentation Completion [RC] STAT 02/02/21 22:00 CULTURE BLOOD [BC] Stat 02/03/21 02:00 EKG Documentation Completion [RC] URGENT - Assessment/Plan Last 24 Hours: My Active Orders 02/02/21 21:55 EKG Documentation Completion [RC] STAT 02/02/21 22:00 CULTURE BLOOD [BC] Stat 02/03/21 02:00 EKG Documentation Completion [RC] URGENT
[2021-02-02 22:29] LABS: ANION GAP 12.9 mEq/L (7-13); CHLORIDE,CL 105 mmol/L (98-107); SODIUM,NA 143 mmol/L (136-145)
--- NOTE | 2021-02-02 22:38 | CR ---
PROCEDURE INFORMATION: Exam: XR Chest Exam date and time: 02/02/2021 10:16 PM Age: 65 years old Clinical indication: Other: Chest pain TECHNIQUE: Imaging protocol: XR of the chest. Views: 1 view. COMPARISON: CR Chest 1V Frontal 01/31/2020 3:48 PM FINDINGS: Lungs: Unremarkable. No consolidation. Pleural spaces: Unremarkable. No pleural effusion. No pneumothorax. Heart/Mediastinum: Unremarkable. No cardiomegaly. Bones/joints: Unremarkable. IMPRESSION: No acute findings.
[2021-02-03 02:06] VITALS: BP 121/72; PULSE 62
== END 2021-02-03 02:45 | disposition home or self-care (01) ==
LOC: DL.ED 21:54
DX: R07.89 Other chest pain (principal); I25.10 Atherosclerotic heart disease of native coronary artery without angina pectoris; I10 Essential (primary) hypertension; E78.00 Pure hypercholesterolemia, unspecified; Z95.5 Presence of coronary angioplasty implant and graft; R73.03 Prediabetes; Z79.82 Long term (current) use of aspirin; Z79.01 Long term (current) use of anticoagulants; Z79.899 Other long term (current) drug therapy
CPT/HCPCS: 36415; 71045; 80053; 83605; 84484; 85025; 85379; 85610; 87040; 93005; 99285-25; A9270-GY

== ENCOUNTER 2023-08-31 18:21 | Emergency (ER) | payer MEDICARE, OTHER ==
[2023-08-31] MEDS ORDERED: Sodium Chloride 0.9% 10 ML Syringe FLUSH PRN (18:32)
[2023-08-31 18:47] LABS: BASOPHILS PERCENT AUTO 0.5 % (0.0-1.0); EOSINOPHILS PERCENT AUTO 2.5 % (1.0-3.0); HEMATOCRIT 47.3 % (40.0-54.0); HEMOGLOBIN 16.2 g/dL (14.0-18.0); LYMPHOCYTES PERCENT AUTO 41.2 % (20.5-50.1); MEAN CORPUSCULAR HEMOGLOBIN 31.2 pg (27.0-34.0); MEAN CORPUSCULAR HGB CONC 34.2 g/dL (33.0-35.0); MEAN CORPUSCULAR VOLUME 91.1 fL (80-100); MONOCYTES PERCENT AUTO 9.6 % (2-8); NEUTROPHILS PERCENT AUTO 46.2 % (42.2-75.2); PLATELET COUNT,PLT 164 10^3/uL (150-450); RED BLOOD CELL COUNT 5.19 10^6/uL (4.6-6.2); WHITE BLOOD CELL COUNT,WBC 7.9 10^3/uL (5.0-10.0)
[2023-08-31 19:08] LABS: A/G RATIO 1.1; ALANINE AMINOTRANSFERASE,ALT 24 U/L (16-63); ALBUMIN 3.9 g/dL (3.4-5.0); ALKALINE PHOSPHATASE 81 U/L (46-116); ANION GAP 12.4 mEq/L (7-13); ASPARTATE AMNIOTRANSFERASE,AST 15 U/L (15-37); BILIRUBIN TOTAL 0.5 mg/dL (0.2-1.0); BLOOD UREA NITROGEN,BUN 14 mg/dL (7-18); BUN/CREATININE RATIO 10.9 (No establ ref range); CARBON DIOXIDE,CO2 26 mmol/L (21-32); CHLORIDE,CL 103 mmol/L (98-107); CREATININE 1.29 mg/dL (0.70-1.30); ESTIMATED GFR 61 mL/min (>=60); GLUCOSE RANDOM 104 mg/dL (70-99); MAGNESIUM 2.1 mg/dL (1.8-2.4); POTASSIUM,K 3.4 mmol/L (3.5-5.1); PROTEIN TOTAL,TP 7.4 g/dL (6.4-8.2); SODIUM,NA 138 mmol/L (136-145)
[2023-08-31 21:50] VITALS: BP 137/87; PULSE 62
== END 2023-08-31 21:58 | disposition home or self-care (01) ==
LOC: DL.ED 18:21
DX: R07.2 Precordial pain (principal); I16.0 Hypertensive urgency; I10 Essential (primary) hypertension; E78.00 Pure hypercholesterolemia, unspecified; I25.10 Atherosclerotic heart disease of native coronary artery without angina pectoris; K21.9 Gastro-esophageal reflux disease without esophagitis; Z79.82 Long term (current) use of aspirin; Z79.899 Other long term (current) drug therapy
CPT/HCPCS: 36415; 71046; 80053; 83735; 84484; 85025; 93005; 93010; 99284; 99285; J3490

== ENCOUNTER 2024-03-22 06:47 | Day surgery (SDC) | payer MEDICARE, OTHER ==
[~2024-03-22 06:47] MED LIST: Midazolam 1 MG/ML 2 ML SDV ONE; fentaNYL 100 MCG/2 ML SDV ONE
[2024-03-22] MEDS ORDERED: Midazolam 1 MG/ML 2 ML SDV IV ONE (06:48)
[2024-03-22] MEDS ORDERED: fentaNYL 100 MCG/2 ML SDV IV ONE (06:48)
[2024-03-22] MEDS: Dextrose 5%-0.45% NaCl 1,000 ML IV SCH (07:22)
[2024-03-22] MEDS: fentaNYL 100 MCG/2 ML SDV IV ONE ×2 (08:16→08:17)
[2024-03-22] MEDS: Midazolam 1 MG/ML 2 ML SDV IV ONE ×2 (08:17→08:18)
[2024-03-22 09:35] VITALS: BP 136/79; PULSE 49
== END 2024-03-22 09:59 | disposition home or self-care (01) ==
LOC: DL.ENDO 06:47
PROVIDERS: ATTEND Internal Medicine Gastroenterology
DX: R13.10 Dysphagia, unspecified (principal); I25.10 Atherosclerotic heart disease of native coronary artery without angina pectoris; K21.9 Gastro-esophageal reflux disease without esophagitis; I10 Essential (primary) hypertension; G47.33 Obstructive sleep apnea (adult) (pediatric); E78.00 Pure hypercholesterolemia, unspecified; K57.30 Diverticulosis of large intestine without perforation or abscess without bleeding; N20.0 Calculus of kidney; I48.0 Paroxysmal atrial fibrillation; Z88.8 Allergy status to other drugs, medicaments and biological substances
CPT/HCPCS: 43239; 87077; 88305; J2250; J3010; J7042

== ENCOUNTER 2024-11-07 06:45 | Emergency (ER) | payer MEDICARE, OTHER ==
[2024-11-07] MEDS ORDERED: Sodium Chloride 0.9% 10 ML Syringe FLUSH PRN ×2 (07:16)
[2024-11-07 07:29] LABS: BASOPHILS PERCENT AUTO 0.2 % (0.0-1.0); EOSINOPHILS PERCENT AUTO 0.2 % (1.0-3.0); HEMATOCRIT 46.7 % (40.0-54.0); HEMOGLOBIN 15.6 g/dL (14.0-18.0); LYMPHOCYTES PERCENT AUTO 26.4 % (20.5-50.1); MEAN CORPUSCULAR HEMOGLOBIN 31.6 pg (27.0-34.0); MEAN CORPUSCULAR HGB CONC 33.4 g/dL (33.0-35.0); MEAN CORPUSCULAR VOLUME 94.5 fL (80-100); NEUTROPHILS PERCENT AUTO 67.2 % (42.2-75.2); PLATELET COUNT,PLT 185 10^3/uL (150-450); RED BLOOD CELL COUNT 4.94 10^6/uL (4.6-6.2); WHITE BLOOD CELL COUNT,WBC 10.7 10^3/uL (5.0-10.0)
[2024-11-07 07:35] LABS: A/G RATIO 1.2; ALBUMIN 4.1 g/dL (3.4-5.0); ANION GAP 11.7 mEq/L (7-13); BILIRUBIN TOTAL 0.7 mg/dL (0.2-1.0); BUN/CREATININE RATIO 19.7 (No establ ref range); CALCIUM 9.3 mg/dL (8.5-10.1); CREATININE 1.17 mg/dL (0.70-1.30); EST CRCL DRUG DOSING (CG) 64.36 mL/min; POTASSIUM,K 3.7 mmol/L (3.5-5.1); PROTEIN TOTAL,TP 7.4 g/dL (6.4-8.2)
[2024-11-07 07:48] LABS: PROTHROMBIN TIME 10.6 SEC (9.0-12.0)
[2024-11-07 07:50] VITALS: BP 153/65; PULSE 58
[2024-11-07 07:54] LABS: D-DIMER QUANTITATIVE < 100 ng/mL (0-400)
== END 2024-11-07 08:25 | disposition home or self-care (01) ==
LOC: DL.ED 06:45
DX: R07.89 Other chest pain (principal); I25.10 Atherosclerotic heart disease of native coronary artery without angina pectoris; I10 Essential (primary) hypertension; E78.00 Pure hypercholesterolemia, unspecified; K21.9 Gastro-esophageal reflux disease without esophagitis; Z90.49 Acquired absence of other specified parts of digestive tract; Z88.8 Allergy status to other drugs, medicaments and biological substances; Z79.01 Long term (current) use of anticoagulants; Z79.52 Long term (current) use of systemic steroids; Z79.899 Other long term (current) drug therapy
CPT/HCPCS: 36415; 80053; 84484; 85025; 85379; 85610; 93005; 99285

== ENCOUNTER 2024-12-03 05:35 | Emergency (ER) | payer MEDICARE, OTHER ==
[2024-12-03] MEDS ORDERED: Sodium Chloride 0.9% 10 ML Syringe FLUSH PRN (05:52)
[2024-12-03] MEDS: Aspirin 81 MG Tab.Chew PO ONE (05:57)
[2024-12-03] MEDS: GI Cocktail Oral Solution 30 ML PO ONE (06:02)
[2024-12-03 06:21] LABS: BASOPHILS PERCENT AUTO 0.7 % (0.0-1.0); EOSINOPHILS PERCENT AUTO 3.8 % (1.0-3.0); HEMATOCRIT 48.3 % (40.0-54.0); HEMOGLOBIN 16.3 g/dL (14.0-18.0); LYMPHOCYTES PERCENT AUTO 32.2 % (20.5-50.1); MEAN CORPUSCULAR HEMOGLOBIN 31.7 pg (27.0-34.0); MEAN CORPUSCULAR HGB CONC 33.7 g/dL (33.0-35.0); MEAN CORPUSCULAR VOLUME 93.8 fL (80-100); MONOCYTES PERCENT AUTO 9.5 % (2-8); NEUTROPHILS PERCENT AUTO 53.8 % (42.2-75.2); PLATELET COUNT,PLT 183 10^3/uL (150-450); RED BLOOD CELL COUNT 5.15 10^6/uL (4.6-6.2); WHITE BLOOD CELL COUNT,WBC 6.8 10^3/uL (5.0-10.0)
[2024-12-03] MEDS: Nitroglycerin 0.4 MG Tab.SL SL ONE (06:25)
[2024-12-03 07:09] LABS: A/G RATIO 1.1; ALBUMIN 3.5 g/dL (3.4-5.0); ANION GAP 12.6 mEq/L (7-13); BILIRUBIN TOTAL 0.4 mg/dL (0.2-1.0); BUN/CREATININE RATIO 13.8 (No establ ref range); CALCIUM 8.7 mg/dL (8.5-10.1); CREATININE 1.23 mg/dL (0.70-1.30); EST CRCL DRUG DOSING (CG) 61.22 mL/min; MAGNESIUM 2.2 mg/dL (1.8-2.4); POTASSIUM,K 3.6 mmol/L (3.5-5.1); PROTEIN TOTAL,TP 6.7 g/dL (6.4-8.2)
[2024-12-03] MEDS: Ondansetron 4 MG/2 ML SDV IVPUSH ONE (07:41)
[2024-12-03 12:19] VITALS: BP 120/78; PULSE 53
== END 2024-12-03 10:05 | disposition home or self-care (01) ==
LOC: DL.ED 05:35
DX: R07.89 Other chest pain (principal); I25.10 Atherosclerotic heart disease of native coronary artery without angina pectoris; I10 Essential (primary) hypertension; E78.00 Pure hypercholesterolemia, unspecified; K21.9 Gastro-esophageal reflux disease without esophagitis; Z95.5 Presence of coronary angioplasty implant and graft; Z79.899 Other long term (current) drug therapy; Z88.8 Allergy status to other drugs, medicaments and biological substances; Z79.01 Long term (current) use of anticoagulants
CPT/HCPCS: 36415; 71045; 80053; 83735; 83880; 84484; 85025; 93005; 96374; 99285; A9270; J2405